=== PATIENT | male | born 1955 | race Caucasian/White ===

== ENCOUNTER 2020-03-14 16:21 | Outpatient (REF) | payer MEDICARE, OTHER, SELFPAY ==
[2020-03-14 16:33] LABS: Appearance Urine CLEAR; Color Urine YELLOW; Glucose Urine UA NEG (NEG); Leukocyte Esterase Urine 1+ (NEG); Nitrite Urine POS (NEG); Specific Gravity - Urine <= 1.005 (1.005-1.025); Urine Blood 3+ (NEG); Urine Ketones NEG (NEG); Urine Protein NEG (NEG-TRACE)
[2020-03-14 16:46] LABS: Bacteria Urine 1+ /LPF; RBC Urine 0-2 /HPF (0); Squamous Epithelial Cell Urine TRACE /LPF
== END 2020-03-14 16:22 | disposition home or self-care (01) ==
LOC: HO.LNP 16:21
PROVIDERS: Visit Provider Urology
DX: R30.0 Dysuria (principal)
CPT/HCPCS: 81001

== ENCOUNTER 2021-04-24 14:52 | Outpatient (REF) | payer MEDICARE, OTHER, SELFPAY ==
[2021-04-24 17:15] LABS: Appearance Urine HAZY; Color Urine STRAW; Glucose Urine UA NEG (NEG); Leukocyte Esterase Urine 2+ (NEG); Nitrite Urine NEG (NEG); Specific Gravity - Urine <= 1.005 (1.005-1.025); UACC Culture Trigger YES; Urine Blood 3+ (NEG); Urine Ketones NEG (NEG); Urine Protein NEG (NEG-TRACE)
[2021-04-24 17:48] LABS: Amorphous Sediment Urine 3+ /LPF; Bacteria Urine 4+ /LPF; Squamous Epithelial Cell Urine 2+ /LPF
== END 2021-04-24 14:53 | disposition home or self-care (01) ==
LOC: HO.HMGCLNP 14:52
PROVIDERS: PCP Nurse Practitioner Family; Visit Provider Urology
DX: N39.0 Urinary tract infection, site not specified (principal); M54.9 Dorsalgia, unspecified
CPT/HCPCS: 81001; 81003; 87086

== ENCOUNTER 2021-05-06 12:17 | Outpatient (REF) | payer MEDICARE, OTHER, SELFPAY ==
[2021-05-06 14:14] LABS: Appearance Urine HAZY; Color Urine YELLOW; Glucose Urine UA NEG (NEG); Leukocyte Esterase Urine 2+ (NEG); Nitrite Urine POS (NEG); Specific Gravity - Urine 1.025 (1.005-1.025); Urine Blood 3+ (NEG); Urine Ketones NEG (NEG); Urine Protein TRACE MG/DL (NEG-TRACE)
[2021-05-06 14:28] LABS: Amorphous Sediment Urine 3+ /LPF; Bacteria Urine 2+ /LPF; Renal Epithelial Cells Urine TRACE /LPF; Squamous Epithelial Cell Urine 1+ /LPF
== END 2021-05-06 12:18 | disposition home or self-care (01) ==
LOC: HO.HMGCLNP 12:17
PROVIDERS: Visit Provider Urology
DX: R82.90 Unspecified abnormal findings in urine (principal); R82.998 Other abnormal findings in urine
CPT/HCPCS: 81001

== ENCOUNTER 2021-05-17 17:40 | Outpatient (REF) | payer MEDICARE, OTHER, SELFPAY ==
[2021-05-17 17:59] LABS: Appearance Urine CLEAR; Color Urine YELLOW; Glucose Urine UA NEG (NEG); Leukocyte Esterase Urine TRACE (NEG); Nitrite Urine NEG (NEG); PH 5.5 (5.0-8.0); Specific Gravity - Urine >= 1.030 (1.005-1.025); Urine Blood 1+ (NEG); Urine Ketones 5 MG/DL (NEG); Urine Protein 2+ MG/DL (NEG-TRACE)
[2021-05-17 18:19] LABS: Bacteria Urine 2+ /LPF; Squamous Epithelial Cell Urine 2+ /LPF
== END 2021-05-17 17:41 | disposition home or self-care (01) ==
LOC: HO.HVNA 17:40
PROVIDERS: Visit Provider Urology
DX: N39.0 Urinary tract infection, site not specified (principal)
CPT/HCPCS: 81001; 87086

== ENCOUNTER 2021-06-27 09:52 | Outpatient (REF) | payer MEDICARE, OTHER, SELFPAY ==
[2021-06-27 11:52] LABS: Appearance Urine CLOUDY; Color Urine YELLOW; Glucose Urine UA NEG (NEG); Leukocyte Esterase Urine 2+ (NEG); Nitrite Urine POS (NEG); UACC Culture Trigger YES; Urine Blood 3+ (NEG); Urine Ketones NEG (NEG); Urine Protein TRACE MG/DL (NEG-TRACE)
[2021-06-27 12:11] LABS: Amorphous Sediment Urine 2+ /LPF; Bacteria Urine 2+ /LPF; Squamous Epithelial Cell Urine 1+ /LPF
[2021-06-27 12:12] LABS: Mucus Urine 1+ /LPF
== END 2021-06-27 09:53 | disposition home or self-care (01) ==
LOC: HO.HMGCLNP 09:52
PROVIDERS: Visit Provider Internal Medicine
DX: N39.0 Urinary tract infection, site not specified (principal)
CPT/HCPCS: 81001; 87086

== ENCOUNTER 2021-07-10 10:43 | Outpatient (REF) | payer MEDICARE, OTHER, SELFPAY ==
[2021-07-10 14:31] LABS: Alanine Aminotransferase 18 U/L (0-40); Alkaline Phosphatase 143 U/L (39-117); Anion Gap 18 (12-20); Aspartate Amino Transferase 19 U/L (5-37); Bilirubin Total 0.4 mg/dL (0.0-1.0); Blood Urea Nitrogen 12 mg/dL (9-16); Calcium 9.7 mg/dL (8.4-10.2); Carbon Dioxide 22 mmol/L (22-29); Chloride 104 mmol/L (96-108); Cholesterol 226 mg/dL; Estimated Glomerular Filt Rate > 60; Glucose Fasting 89 mg/dL (60-99); HDL Cholesterol 45 mg/dL; LDL Cholesterol Calculated 161 mg/dl; Potassium 4.3 mmol/L (3.3-5.1); Sodium 140 mmol/L (135-145); Total Protein 7.9 g/dL (6.5-8.0); Triglycerides 103 mg/dL
[2021-07-10 14:44] LABS: Prostate Specific Antigen Scr 0.86 ng/mL (<0.05-4.0); TSH reflex Free T4 1.46 uIU/mL (0.32-4.0)
== END 2021-07-10 10:44 | disposition home or self-care (01) ==
LOC: HO.HVNA 10:43
PROVIDERS: Visit Provider Nurse Practitioner Family
DX: D68.61 Antiphospholipid syndrome (principal); D64.9 Anemia, unspecified; Z12.5 Encounter for screening for malignant neoplasm of prostate
CPT/HCPCS: 36415; 80053; 80061; 84153; 84443

== ENCOUNTER 2022-05-23 17:56 | Outpatient (REF) | payer MEDICARE, SELFPAY ==
[2022-05-23 18:35] LABS: Appearance Urine Cloudy; Color Urine Yellow; Glucose Urine UA Negative (Negative); Leukocyte Esterase Urine Moderate (2+) (Negative); Nitrite Urine Positive (Negative); PH 5.5 (5.0-9.0); Specific Gravity - Urine 1.015 (1.005-1.025); UMIC TRIGGER UA YES; Urine Blood Large (3+) (Negative); Urine Ketones 15 mg/dL (Negative); Urine Protein 30 (1+) mg/dL (Neg-Trace)
[2022-05-23 19:12] LABS: Bacteria Urine 4+ (None Seen)
== END 2022-05-23 17:57 | disposition home or self-care (01) ==
LOC: HO.HVNA 17:56
PROVIDERS: Visit Provider Nurse Practitioner Family
DX: N31.9 Neuromuscular dysfunction of bladder, unspecified (principal); N39.0 Urinary tract infection, site not specified
CPT/HCPCS: 81001; 87086

== ENCOUNTER 2022-05-28 12:25 | Inpatient (IN) | payer MEDICARE, OTHER, SELFPAY ==
[2022-05-28] VITALS (7 sets, daily range): BP systolic 105–132; BP diastolic 53–87; PULSE 86–105; RESP 14–22; TEMP 36.8–39.3; O2SAT 94–100; BMI 21.2
--- NOTE | ~2022-05-28 | CT_ITS ---
EXAMINATION: CT PELVIS WITH CONTRAST CLINICAL INFORMATION: Left buttock decubitus ulcer, rule out osteomyelitis. COMPARISON: Pelvic radiograph dated 03/25/2017. TECHNIQUE: Helical scanning was performed with submillimeter collimation through the pelvis with the use of oral contrast and during bolus intravenous injection of 100 mL of Omnipaque 350 intravenous contrast. Sagittal and coronal multiplanar 2-D reconstructions were obtained. This CT examination was performed using dose optimization techniques as appropriate, variously including the following: *Automated exposure control *Adjustment of mA and/or kV according to patient size (this includes techniques or standardized protocols for targeted exams where dose is matched to indication/reason for exam; i.e. extremities or head) *Use of iterative reconstruction technique DLP: 256 mGy-cm FINDINGS: PELVIS: The visualized small bowel is unremarkable. Moderate stool seen within the visualized colon and rectum. The urinary bladder is decompressed containing a Ann catheter without surrounding abnormality. SOFT TISSUES: There is a large right inferomedial gluteal soft tissue wound extending deep to the posterior inferior margin of the right inferior pubic ramus as well as inferomedially into the right perineum and possible right scrotum. Edema extends along the subcutaneous soft tissues superficial to the right gluteus zion muscle. OSSEOUS STRUCTURES: Mild degenerative disc disease in the visualized lumbar spine from L3-L4 and L5-S1. Minimal grade 1 retrolisthesis of L5 over S1. There is normal sacrococcygeal curvature. No acute fracture. CT/CT pelvis w IV con IMPRESSION: 1. Large right inferomedial gluteal soft tissue wound extending deep to the posterior inferior margin of the right inferior pubic ramus as well as inferomedially into the right perineum possibly right scrotum. The subjacent right inferior pubic ramus shows no definitive evidence for osteomyelitis. 2. Moderate colonic/rectal stool burden.
--- NOTE | 2022-05-28 13:15 | MHC.CM.ED ---
Received notification from [facility] that patient is active with their agency. Med list provided from [facility] and placed in chart. Referral made to [facility] in [facility] so they can follow patient for d/c needs. Continue to monitor for d/c needs.
[2022-05-28 14:07] LABS: Basophils Percent Auto 0.2 % (0-2); Eosinophils Percent Auto 0.1 % (0-4); Hematocrit 42.7 % (42.0-52.0); Hemoglobin 14.3 g/dl (14.0-18.0); Imm Gran Abs Auto 0.13 X10*3/uL (0.00-0.03); Imm Gran Pct Auto 0.6 % (0.0-0.4); Lymphocytes Absolute Auto 1.2 X10*3/uL (1.2-4.9); Lymphocytes Percent Auto 5.3 % (20-40); MANUAL DIFF FLAG SCAN; Mean Corpuscular HGB Conc 33.5 g/dl (31.0-36.0); Mean Corpuscular Hemoglobin 29.4 pg (27.0-33.0); Mean Corpuscular Volume 87.9 fL (80.0-98.0); Monocytes Absolute Auto 1.9 X10*3/uL (0.1-1.2); Monocytes Percent Auto 8.8 % (2-11); Neutrophils Absolute Auto 18.7 x10*3/uL (2.0-8.3); Platelet Count 709 X10*3/uL (160-400); Red Blood Count 4.86 X10*6/uL (4.60-5.80); Red Cell Distribution Width 15.5 % (11.0-16.0); SCAN SMEAR FLAG 1
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
[2022-05-28 14:17] LABS: Lactic Acid 1.3 mmol/L (0.5-2.0)
[2022-05-28] MEDS: cefTRIAXone sodium 2 GM in 0.9 % Sodium Chloride 50 ML IV (14:25)
[2022-05-28] MEDS: 0.9 % Sodium Chloride 2,041.17 ML 2041.17 ML IV (14:25)
[2022-05-28 14:31] LABS: Appearance Urine Cloudy; Color Urine Yellow; Glucose Urine UA Negative (Negative); Leukocyte Esterase Urine Moderate (2+) (Negative); Nitrite Urine Positive (Negative); PH 5.5 (5.0-9.0); Specific Gravity - Urine 1.015 (1.005-1.025); UMIC TRIGGER UACC YES; Urine Blood Large (3+) (Negative); Urine Ketones Trace mg/dL (Negative); Urine Protein 30 (1+) mg/dL (Neg-Trace)
[2022-05-28 14:34] LABS: Bacteria Urine 4+ (None Seen); Hyaline Casts Urine 0-2 /LPF (0-2); RBC Urine >20 /HPF (0-2); UACC Culture Trigger YES; WBC Urine 21-50 /HPF (0-5)
[2022-05-28] MEDS: vancomycin HCL 1,500 MG in 0.9 % Sodium Chloride 500 ML 333.33 MG IV (14:36)
[2022-05-28 14:43] LABS: SLIDE REVIEW VERIFIED
[2022-05-28 14:48] LABS: Alanine Aminotransferase 30 U/L (0-40); Albumin Level 3.4 g/dL (3.5-5.0); Alkaline Phosphatase 168 U/L (39-117); Anion Gap 15 (12-20); Aspartate Amino Transferase 23 U/L (5-37); Bilirubin Total 0.7 mg/dL (0.0-1.0); Blood Urea Nitrogen 8 mg/dL (9-16); Calcium 8.6 mg/dL (8.4-10.2); Carbon Dioxide 27 mmol/L (22-29); Chloride 101 mmol/L (96-108); Creatinine Clr Calc Pharmacy 101.2; Estimated Glomerular Filt Rate > 60; Glucose Fasting 98 mg/dL (60-99); Potassium 3.8 mmol/L (3.3-5.1); Sodium 139 mmol/L (135-145); Total Protein 7.4 g/dL (6.5-8.0)
[2022-05-28] MEDS: Acetaminophen 325 MG TABLET 975 MG PO (15:00)
[2022-05-28] MEDS: iohexoL 350 MG/ML 100 ML INFUS..BTL IV (15:18)
[2022-05-28 15:20] LABS: Prothrombin Time 72.5 SEC (10.0-13.1)
[2022-05-28 15:22] LABS: INTERNATIONAL NORM RATIO 5.9 (0.9-1.1)
[2022-05-28] MEDS: Phytonadione (Vit K1) Oral 10 MG/ML AMPUL 2.5 MG PO (16:01)
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
--- NOTE | 2022-05-28 17:02 | PHA.MEDREC ---
Pharmacy Consult ? Medication Reconciliation Pharmacy has completed the medication reconciliation. Spoke with patient in the ED. Patient takes warfarin 7.5 mg mg on mon thu and fri and 5 mg all other days/ Patient has not picked up RX for levaquin yet.
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
[2022-05-28] MEDS: Atorvastatin Calcium 20 MG TABLET PO (21:36)
--- NOTE | 2022-05-28 21:41 | PC.NURSE ---
pt medicated according to feli. this rn assisted pt in emptying barrera leg collection bag. pt repositioned to R side. pt states no new needs at this time
[2022-05-28] MEDS: cefEPime HCl 2 GM in 0.9 % Sodium Chloride 50 ML IV (23:24)
[2022-05-28] MEDS: 0.9 % Sodium Chloride Flush 3 ML SYRINGE IVFLUSH (23:24)
[2022-05-28 23:53] LABS: COVID-19 Test Negative (Negative); IDNOW Serial# 6674DD1D
--- NOTE | 2022-05-29 | PC.NURSE ---
pt medicated according to may. pt repositioned to L side. bed linens straightened out. covid swab obtained and sent down to lab
--- NOTE | 2022-05-29 01:29 | PC.NURSE ---
pr resting comfortably on l side. pt provided with additional pillow. pt requested cranberry juice at this time. this rn provided pt with juice. pt states no new needs at this time
--- NOTE | 2022-05-29 05:11 | PC.NURSE ---
pt sleeping on stretcher at this time.
[2022-05-29 06:57] LABS: Basophils Absolute Auto 0.1 X10*3/uL (0.0-0.2); Basophils Percent Auto 0.3 % (0-2); Eosinophils Absolute Auto 0.2 X10*3/uL (0.0-0.4); Hemoglobin 12.5 g/dl (14.0-18.0); Imm Gran Pct Auto 0.5 % (0.0-0.4); Lymphocytes Absolute Auto 1.2 X10*3/uL (1.2-4.9); Lymphocytes Percent Auto 6.7 % (20-40); MANUAL DIFF FLAG SCAN; Mean Corpuscular HGB Conc 33.8 g/dl (31.0-36.0); Mean Corpuscular Volume 88.7 fL (80.0-98.0); Mean Platelet Volume 9.4 fL (9.4-12.4); Monocytes Absolute Auto 1.8 X10*3/uL (0.1-1.2); Monocytes Percent Auto 9.8 % (2-11); Neutrophils Absolute Auto 15.3 x10*3/uL (2.0-8.3); Neutrophils Percent Auto 81.7 % (45-73); Platelet Count 647 X10*3/uL (160-400); Red Blood Count 4.17 X10*6/uL (4.60-5.80); Red Cell Distribution Width 15.6 % (11.0-16.0); SCAN SMEAR FLAG 1; White Blood Count 18.6 X10*3/uL (4.8-10.8)
[2022-05-29 07:02] LABS: INTERNATIONAL NORM RATIO 3.3 (0.9-1.1); Prothrombin Time 40.1 SEC (10.0-13.1)
[2022-05-29 07:10] LABS: Anion Gap 12 (12-20); Blood Urea Nitrogen 6 mg/dL (9-16); Carbon Dioxide 26 mmol/L (22-29); Chloride 106 mmol/L (96-108); Creatinine Clr Calc Pharmacy 126.6; Estimated Glomerular Filt Rate > 60; Glucose Random 86 mg/dL (60-115); Potassium 3.6 mmol/L (3.3-5.1); Sodium 140 mmol/L (135-145)
[2022-05-29 07:29] VITALS: BP 111/68; PULSE 87; RESP 20; TEMP 37.6; O2SAT 96
[2022-05-29 07:36] LABS: SLIDE REVIEW VERIFIED
[2022-05-29] MEDS: Ascorbic Acid 500 MG TABLET PO (08:03)
[2022-05-29] MEDS: Ferrous Sulfate 324 MG TABLET.DR PO (08:03)
[2022-05-29] MEDS: cefEPime HCl 2 GM in 0.9 % Sodium Chloride 50 ML IV ×3 (08:03→21:36)
[2022-05-29] MEDS: 0.9 % Sodium Chloride Flush 3 ML SYRINGE IVFLUSH ×3 (08:06→21:37)
--- NOTE | 2022-05-29 08:16 | MHC.EDTECH ---
Patient bedding changed and wound covered. Catheter drainage bag changed from leg bag that Pt came in with to one of our drainage bags.
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
--- NOTE | 2022-05-29 12:53 | PC.NURSE ---
per dr. rebollar - pt to have surgery tomorrow so pt needs to be npo tonight. pt aware of plan of care. primary care rn aware.
[2022-05-29] MEDS: vancomycin HCL 1,250 MG in 0.9 % Sodium Chloride 250 ML 166.67 MG IV (13:56)
--- NOTE | 2022-05-29 13:56 | P.PNIM_ITS ---
Subjective Subjective Date of Service: 05/30/22 Interval History: f/u on sepsis, uti, decub ulcer interval history: no new complaint Physical Exam Vital Signs: Vital Signs: Last Vital Signs Temp 99.6 F 05/29/22 07:29 Pulse 87 05/29/22 07:29 Resp 20 05/29/22 07:29 BP 111/68 05/29/22 07:29 Pulse Ox 96 05/29/22 07:29 O2 Del Method 05/29/22 07:29 BMI result Body Mass Index 21.2 Const: Other: General: AO X 3, no acute distress Resp: CTA bilateral CVS: S1,S2,RRR GI: +BS, NT, no distention Skin: See ulcer picuture in H and P Neuro: motor grossly intact Psych: appropriate affect Objective Data Active Medications Acetaminophen (Acetaminophen 325 Mg Tablet) 650 mg PO Q6H PRN PRN Reason: Pain, Mild, fever Ascorbic Acid (Ascorbic Acid 500 Mg Tablet) 500 mg PO DAILY [facility] Last Admin: 05/29/22 08:03 Dose: 500 mg Documented By: MIGUEL Atorvastatin Calcium (Atorvastatin Calcium 20 Mg Tablet) 20 mg PO BEDTIME [facility] Last Admin: 05/28/22 21:36 Dose: 20 mg Documented By: KAILEY Ferrous Sulfate (Ferrous Sulfate 324 Mg Tablet.) 324 mg PO DAILY [facility] Last Admin: 05/29/22 08:03 Dose: 324 mg Documented By: MIGUEL Cefepime HCl 2 gm/ Sodium (Chloride) 50 mls @ 100 mls/hr IV Q8H [facility] Last Infusion: 05/29/22 11:47 Dose: 0 mls/hr Documented By: MIGUEL Vancomycin HCl 1,250 mg/ (Sodium Chloride) 250 mls @ 166.667 mls/hr IV Q24H [facility] Last Admin: 05/29/22 13:56 Dose: 166.67 mls/hr Documented By: YONY Omeprazole (Omeprazole 20 Mg Capsule.) 20 mg PO DAILY@0630 PRN PRN Reason: Acid Reflux Pharmacy Consult (Consult Rx Perform Med Rec) 1 each MISCELLANE ONCE PRN PRN Reason: Consult order Pharmacy Consult (Consult Rx Vancomycin Dosing) 1 each MISCELLANE DAILY PRN PRN Reason: Consult order Sodium Chloride (0.9 % Sodium Chloride Flush 3 Ml Syringe) 3 ml IVFLUSH QSHIFT [facility] Last Admin: 05/29/22 08:06 Dose: 3 ml Documented By: MIGUEL Labs 05/29/22 06:35 05/29/22 06:35 Labs: Laboratory Results - last 24 hr 05/28/22 05/28/22 05/28/22 13:56 13:56 13:56 MCV 87.9 MCH 29.4 MCHC 33.5 RDW 15.5 Plt Count 709 H MPV 9.0 L Immature Gran % (Auto) 0.6 H Neut % (Auto) 85.0 H Lymph % (Auto) 5.3 L [place] % (Auto) 8.8 Eos % (Auto) 0.1 Baso % (Auto) 0.2 Lymph # (Auto) 1.2 [place] # (Auto) 1.9 H Eos # (Auto) 0.0 Baso # (Auto) 0.0 Abs Immat Gran (auto) 0.13 H Absolute Neuts (auto) 18.7 H Absolute Nucleated RBC 0.000 Nucleated RBC % (auto) 0.0 Smear Tech's Comments VERIFIED PT INR Anion Gap 15 Estim Creat Clear Calc 101.2 Estimated GFR > 60 Random Glucose Fasting Glucose 98 Lactic Acid 1.3 Calcium 8.6 D Total Bilirubin 0.7 AST 23 ALT 30 Alkaline Phosphatase 168 H Total Protein 7.4 Albumin 3.4 L Urine Color Urine Appearance Urine pH Ur Specific [place] Urine Protein Urine Glucose (UA) Urine Ketones Urine Blood Urine Nitrite Ur Leukocyte Esterase Urine RBC Urine WBC Ur Squamous Epith Cells Urine Bacteria Hyaline Casts COVID-19 (SANJEEV) COVID-19 Clin Com 05/28/22 05/28/22 05/28/22 14:21 15:08 23:34 MCV MCH MCHC RDW Plt Count MPV Immature Gran % (Auto) Neut % (Auto) Lymph % (Auto) [place] % (Auto) Eos % (Auto) Baso % (Auto) Lymph # (Auto) [place] # (Auto) Eos # (Auto) Baso # (Auto) Abs Immat Gran (auto) Absolute Neuts (auto) Absolute Nucleated RBC Nucleated RBC % (auto) Smear Tech's Comments PT 72.5 H INR 5.9 H* Anion Gap Estim Creat Clear Calc Estimated GFR Random Glucose Fasting Glucose Lactic Acid Calcium Total Bilirubin AST ALT Alkaline Phosphatase Total Protein Albumin Urine Color Yellow Urine Appearance Cloudy Urine pH 5.5 Ur Specific [place] 1.015 Urine Protein 30 (1+) H Urine Glucose (UA) Negative Urine Ketones Trace Urine Blood Large (3+) H Urine Nitrite Positive H Ur Leukocyte Esterase Moderate (2+) H Urine RBC >20 H Urine WBC 21-50 H Ur Squamous Epith Cells 3-5 Urine Bacteria 4+ Hyaline Casts 0-2 COVID-19 (SANJEEV) Negative COVID-19 Clin Com See Note 05/29/22 05/29/22 05/29/22 06:35 06:35 06:35 MCV 88.7 MCH 30.0 MCHC 33.8 RDW 15.6 Plt Count 647 H MPV 9.4 Immature Gran % (Auto) 0.5 H Neut % (Auto) 81.7 H Lymph % (Auto) 6.7 L [place] % (Auto) 9.8 Eos % (Auto) 1.0 Baso % (Auto) 0.3 Lymph # (Auto) 1.2 [place] # (Auto) 1.8 H Eos # (Auto) 0.2 Baso # (Auto) 0.1 Abs Immat Gran (auto) 0.10 H Absolute Neuts (auto) 15.3 H Absolute Nucleated RBC 0.000 Nucleated RBC % (auto) 0.0 Smear Tech's Comments VERIFIED PT 40.1 H INR 3.3 H D Anion Gap 12 Estim Creat Clear Calc 126.6 Estimated GFR > 60 Random Glucose 86 Fasting Glucose Lactic Acid Calcium 8.0 L D Total Bilirubin AST ALT Alkaline Phosphatase Total Protein Albumin Urine Color Urine Appearance Urine pH Ur Specific [place] Urine Protein Urine Glucose (UA) Urine Ketones Urine Blood Urine Nitrite Ur Leukocyte Esterase Urine RBC Urine WBC Ur Squamous Epith Cells Urine Bacteria Hyaline Casts COVID-19 (SANJEEV) COVID-19 Clin Com Microbiology Microbiology Results: Microbiology 05/28/22 Unknown Urine Culture - Final Urine Catheterized - Ann Catheter Assessment and Plan (1) Supratherapeutic INR: Status: Acute (2) Paraplegia: Status: Acute (3) Sepsis: Status: Acute (4) Decubitus ulcer, stage 3 with infection: Status: Acute Plan 66-year-old male who is paraplegic following consent wound and is wheelchair bound with PMH including antiphospholipid antibody syndrome, dyslipidemia, GERD, iron deficiency anemia, history of DVT anticoagulated with Coumadin, neurogenic bladder with Ann catheter in place admitted for UTI and decubitus ulcer with sepsis. #Sepsis d/t ulcer, improving, WBC better, fever resolved continue Abx, surgery for decub ulcer debriment continue Cefepime and vanco #UTI--continue Abx, culture pending # history of DVT with antiphospholipid antibody syndrome, hold coumadin until after surgery # paraplegia -continue chronic Ann catheter and ostomy care # iron deficiency anemia -H/H stable -continue ferrous sulfate # HLD -continue statin # GERD -continue PPI DNR/DNI DVT prophylaxis-SCPs, resume Coumadin once INR therapeutic Need for inpatient: treatment of sepsis with IV Abx and need for debridment in OR Time Spent With Patient Time: Total time managing care of this patient today ____ minutes. Quality Stroke Does the patient have a stroke diagnosis?: No VTE Prior VTE?: No VTE Risk Level:: Medical - moderate - high VTE Device Contraindication: N/A - Device Ordered VTE Drug Contraindication: Treatment Not Indicated
[2022-05-29] MEDS: Acetaminophen 325 MG TABLET 650 MG PO (14:20)
--- NOTE | 2022-05-29 18:43 | PC.NURSE ---
Pt alert and oriented x4. Pt admitted o rm 344 with a decubitus Ulcer to his [facility] and urosepsis. Pt arrived in the unit around 1809 via a stretcher. Pt denies pain at this time.
[2022-05-29 19:10] VITALS: BP 118/64; PULSE 76; RESP 18; TEMP 37.4; O2SAT 97
[2022-05-29] MEDS: Atorvastatin Calcium 20 MG TABLET PO (21:37)
[2022-05-30] VITALS (8 sets, daily range): BP systolic 105–121; BP diastolic 55–69; PULSE 62–75; RESP 15–20; TEMP 36.4–37.9; O2SAT 97–99; BMI 21.2
[2022-05-30] MEDS: cefEPime HCl 2 GM in 0.9 % Sodium Chloride 50 ML IV ×3 (06:12→22:41)
--- NOTE | 2022-05-30 07:03 | PC.NURSE ---
INR 3.3 yesterday, no new draw this morning. Dr. Jade notified via [employer] and is okay to proceed without new draw.
[2022-05-30] MEDS: 0.9 % Sodium Chloride Flush 3 ML SYRINGE IVFLUSH ×3 (07:35→20:32)
[2022-05-30 08:50] LABS: Creatinine Clr Calc Pharmacy 102.8; Estimated Glomerular Filt Rate > 60
--- NOTE | 2022-05-30 09:05 | P.PNIM_ITS ---
Subjective Subjective Date of Service: 05/30/22 Interval History: f/u on sepsis, uti, decub ulcer interval history: pain controlled, no new issues Physical Exam Vital Signs: Vital Signs: Last Vital Signs Temp 98.7 F 05/30/22 07:36 Pulse 72 05/30/22 07:36 Resp 18 05/30/22 07:36 BP 117/55 L 05/30/22 07:36 Pulse Ox 98 05/30/22 07:36 O2 Del Method 05/30/22 07:36 BMI result Body Mass Index 21.2 Const: Other: General: AO X 3, no acute distress Resp: CTA bilateral CVS: S1,S2,RRR GI: +BS, NT, no distention Skin: See ulcer picuture in H and P Neuro: motor grossly intact Psych: appropriate affect Skin: Other: Ulcer as noted above Objective Data Active Medications Acetaminophen (Acetaminophen 325 Mg Tablet) 650 mg PO Q6H PRN PRN Reason: Pain, Mild, fever Last Admin: 05/29/22 14:20 Dose: 650 mg Documented By: MIGUEL Ascorbic Acid (Ascorbic Acid 500 Mg Tablet) 500 mg PO DAILY [facility] Last Admin: 05/30/22 07:30 Dose: Not Given Documented By: ERICK Non-Admin Reason: NPO Atorvastatin Calcium (Atorvastatin Calcium 20 Mg Tablet) 20 mg PO BEDTIME [facility] Last Admin: 05/29/22 21:37 Dose: 20 mg Documented By: AMY Ferrous Sulfate (Ferrous Sulfate 324 Mg Tablet.) 324 mg PO DAILY [facility] Last Admin: 05/30/22 07:30 Dose: Not Given Documented By: ERICK Non-Admin Reason: NPO Cefepime HCl 2 gm/ Sodium (Chloride) 50 mls @ 100 mls/hr IV Q8H [facility] Last Infusion: 05/30/22 06:44 Dose: 0 mls/hr Documented By: AMY Vancomycin HCl 1,250 mg/ (Sodium Chloride) 250 mls @ 166.667 mls/hr IV Q24H [facility] Last Infusion: 05/29/22 16:38 Dose: 0 mls/hr Documented By: MIGUEL Omeprazole (Omeprazole 20 Mg Capsule.) 20 mg PO DAILY@0630 PRN PRN Reason: Acid Reflux Pharmacy Consult (Consult Rx Perform Med Rec) 1 each MISCELLANE ONCE PRN PRN Reason: Consult order Pharmacy Consult (Consult Rx Vancomycin Dosing) 1 each MISCELLANE DAILY PRN PRN Reason: Consult order Sodium Chloride (0.9 % Sodium Chloride Flush 3 Ml Syringe) 3 ml IVFLUSH QSHIFT [facility] Last Admin: 05/30/22 07:35 Dose: 3 ml Documented By: ERICK Labs 05/29/22 06:35 05/30/22 08:26 Labs: Laboratory Results - last 24 hr 05/30/22 08:26 Estim Creat Clear Calc 102.8 Estimated GFR > 60 Microbiology Microbiology Results: Microbiology 05/28/22 13:56 Blood Culture - Preliminary Blood - Venous No growth after 24 hours. 05/28/22 13:56 Blood Culture - Preliminary Blood - Venous No growth after 24 hours. 05/28/22 Unknown Urine Culture - Final Urine Catheterized - Ann Catheter Assessment and Plan (1) Supratherapeutic INR: Status: Acute (2) Paraplegia: Status: Acute (3) Sepsis: Status: Acute (4) Decubitus ulcer, stage 3 with infection: Status: Acute Plan 66-year-old male who is paraplegic following consent wound and is wheelchair bound with PMH including antiphospholipid antibody syndrome, dyslipidemia, GERD, iron deficiency anemia, history of DVT anticoagulated with Coumadin, neurogenic bladder with Ann catheter in place admitted for UTI and decubitus ulcer with sepsis. #Sepsis d/t ulcer, improving, WBC better, fever resolved continue Abx, surgery for decub ulcer debriment today continue Cefepime and vanco #UTI--continue Abx, culture negative. # history of DVT with antiphospholipid antibody syndrome, hold coumadin until after surgery # paraplegia -continue chronic Ann catheter and ostomy care # iron deficiency anemia -H/H stable -continue ferrous sulfate # HLD -continue statin # GERD -continue PPI DNR/DNI DVT prophylaxis-SCPs, resume Coumadin once INR therapeutic Need for inpatient: treatment of sepsis with IV Abx and need for debridment in OR Time Spent With Patient Time: Total time managing care of this patient today ____ minutes. Quality Stroke Does the patient have a stroke diagnosis?: No VTE Prior VTE?: No VTE Risk Level:: Medical - moderate - high VTE Device Contraindication: N/A - Device Ordered VTE Drug Contraindication: Treatment Not Indicated
[2022-05-30 10:05] LABS: Hematocrit 40.3 % (42.0-52.0); Hemoglobin 13.2 g/dl (14.0-18.0); Mean Corpuscular HGB Conc 32.8 g/dl (31.0-36.0); Mean Corpuscular Hemoglobin 29.9 pg (27.0-33.0); Mean Corpuscular Volume 91.2 fL (80.0-98.0); Mean Platelet Volume 10.5 fL (9.4-12.4); Platelet Count 678 X10*3/uL (160-400); Red Blood Count 4.42 X10*6/uL (4.60-5.80); Red Cell Distribution Width 15.8 % (11.0-16.0); White Blood Count 17.6 X10*3/uL (4.8-10.8)
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
--- NOTE | 2022-05-30 13:06 | MHC.CLN ---
NUTRITION CONSULT FOR SKIN. REQUIRES SURGICAL DEBRIDEMENT OF NECROTIC WOUND. STAGE III TO RIGHT BUTTOCK. CURRENTLY NPO. DIET PRIOR TO NPO WAS REGULAR WITH ENSURE BID. CONTINUE REGULAR DIET WHEN ABLE. MAY INCREASE SUPPLEMENT TO ENSURE TID. PROVIDES ADDITIONAL 1050 KCALS, 60 G PROTEIN. FOLLOW FOR DIET ADVANCEMENT, WOUND HEALING, AND INTAKE.
[2022-05-30] MEDS: vancomycin HCL 1,250 MG in 0.9 % Sodium Chloride 250 ML 166.67 MG IV (14:56)
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
[2022-05-30 17:36] LABS: Erythrocyte Sedimentation Rate 66 MM/HR (0-15)
[2022-05-30] MEDS: Acetaminophen 325 MG TABLET 650 MG PO (20:31)
[2022-05-30] MEDS: Atorvastatin Calcium 20 MG TABLET PO (20:31)
[2022-05-31 04:00] VITALS: BP 119/70; PULSE 70; RESP 18; TEMP 36.4; O2SAT 97
--- NOTE | 2022-05-31 04:04 | PC.NURSE ---
pt right buttock has large amount of drainage without odor or pain. changed dressing packed hole as an ordered. wet to dry with Dakin's solution at 04:00.
[2022-05-31 06:20] LABS: Creatinine Clr Calc Pharmacy 109.7; Estimated Glomerular Filt Rate > 60
[2022-05-31] MEDS: cefEPime HCl 2 GM in 0.9 % Sodium Chloride 50 ML IV ×3 (06:33→22:45)
[2022-05-31 07:40] VITALS: BP 128/70; PULSE 68; RESP 18; TEMP 36.4; O2SAT 97
--- NOTE | 2022-05-31 08:38 | HO.PM.IMPN ---
Subjective Subjective Date of Service: 05/31/22 Interval History: f/u on sepsis, uti, decub ulcer interval history: pain controlled, no new issues s/p OR debridment yesterday Physical Exam Vital Signs: Vital Signs: Last Vital Signs Temp 97.6 F 05/31/22 07:40 Pulse 68 05/31/22 07:40 Resp 18 05/31/22 07:40 BP 128/70 05/31/22 07:40 Pulse Ox 97 05/31/22 07:40 O2 Del Method 05/31/22 07:40 BMI result Body Mass Index 21.2 Objective Data Active Medications Acetaminophen (Acetaminophen 325 Mg Tablet) 650 mg PO Q6H PRN PRN Reason: Pain, Mild, fever Last Admin: 05/30/22 20:31 Dose: 650 mg Documented By: TIGRE Ascorbic Acid (Ascorbic Acid 500 Mg Tablet) 500 mg PO DAILY [facility] Last Admin: 05/30/22 07:30 Dose: Not Given Documented By: ERICK Non-Admin Reason: NPO Atorvastatin Calcium (Atorvastatin Calcium 20 Mg Tablet) 20 mg PO BEDTIME [facility] Last Admin: 05/30/22 20:31 Dose: 20 mg Documented By: TIGRE Ferrous Sulfate (Ferrous Sulfate 324 Mg Tablet.) 324 mg PO DAILY [facility] Last Admin: 05/30/22 07:30 Dose: Not Given Documented By: ERICK Non-Admin Reason: NPO Cefepime HCl 2 gm/ Sodium (Chloride) 50 mls @ 100 mls/hr IV Q8H [facility] Last Infusion: 05/31/22 07:18 Dose: 0 mls/hr Documented By: CHRISTINA Vancomycin HCl 1,250 mg/ (Sodium Chloride) 250 mls @ 166.667 mls/hr IV Q24H [facility] Last Infusion: 05/30/22 16:33 Dose: 0 mls/hr Documented By: DEIDRE Omeprazole (Omeprazole 20 Mg Capsule.) 20 mg PO DAILY@0630 PRN PRN Reason: Acid Reflux Pharmacy Consult (Consult Rx Perform Med Rec) 1 each MISCELLANE ONCE PRN PRN Reason: Consult order Pharmacy Consult (Consult Rx Vancomycin Dosing) 1 each MISCELLANE DAILY PRN PRN Reason: Consult order Sodium Chloride (0.9 % Sodium Chloride Flush 3 Ml Syringe) 3 ml IVFLUSH QSHIFT [facility] Last Admin: 05/30/22 20:32 Dose: 3 ml Documented By: TIGRE Sodium Hypochlorite (Sodium Hypochlorite 0.25% 473 Ml Solution) 1 appl TOPICAL DAILY [facility] Last Admin: 05/31/22 04:03 Dose: 1 appl Documented By: TIGRE Labs 05/30/22 08:26 05/31/22 05:35 Labs: Laboratory Results - last 24 hr 05/30/22 05/30/22 05/30/22 08:26 08:26 16:29 MCV 91.2 MCH 29.9 MCHC 32.8 RDW 15.8 Plt Count 678 H MPV 10.5 Absolute Nucleated RBC 0.000 Nucleated RBC % (auto) 0.0 ESR 66 H Estim Creat Clear Calc 102.8 Estimated GFR > 60 05/31/22 05:35 MCV MCH MCHC RDW Plt Count MPV Absolute Nucleated RBC Nucleated RBC % (auto) ESR Estim Creat Clear Calc 109.7 Estimated GFR > 60 Microbiology Microbiology Results: Microbiology 05/30/22 12:53 Gram Stain - Final Sacrum 05/28/22 13:56 Blood Culture - Preliminary Blood - Venous No growth after 48 hours. 05/28/22 13:56 Blood Culture - Preliminary Blood - Venous No growth after 48 hours. Assessment and Plan (1) Supratherapeutic INR: Status: Acute (2) Paraplegia: Status: Acute (3) Sepsis: Status: Acute (4) Decubitus ulcer, stage 3 with infection: Status: Acute Plan 66-year-old male who is paraplegic following consent wound and is wheelchair bound with PMH including antiphospholipid antibody syndrome, dyslipidemia, GERD, iron deficiency anemia, history of DVT anticoagulated with Coumadin, neurogenic bladder with Ann catheter in place admitted for UTI and decubitus ulcer with sepsis. #Sepsis d/t ulcer, improving, WBC better, fever resolved, ESR 66 ID is recommending at least 3 weeks of IV Ertapenem continue Abx, Debride in OR 3/3, cultures negative continue Cefepime and vanco, dc vaco today #UTI--continue Abx as above, culture negative. # history of DVT with antiphospholipid antibody syndrome, check INR, resume coumadin # paraplegia -continue chronic Ann catheter and ostomy care # iron deficiency anemia -H/H stable -continue ferrous sulfate # HLD -continue statin # GERD -continue PPI DNR/DNI DVT prophylaxis-SCPs, resume Coumadin once INR therapeutic Need for inpatient: treatment of sepsis with IV Abx and need for debridment in OR Time Spent With Patient Time: Total time managing care of this patient today ____ minutes. Quality Stroke Does the patient have a stroke diagnosis?: No VTE Prior VTE?: No VTE Risk Level:: Medical - moderate - high VTE Device Contraindication: N/A - Device Ordered VTE Drug Contraindication: Treatment Not Indicated
[2022-05-31 09:16] LABS: INTERNATIONAL NORM RATIO 1.4 (0.9-1.1)
[2022-05-31] MEDS: 0.9 % Sodium Chloride Flush 3 ML SYRINGE IVFLUSH ×3 (09:20→21:04)
[2022-05-31] MEDS: Ferrous Sulfate 324 MG TABLET.DR PO (09:20)
[2022-05-31] MEDS: Ascorbic Acid 500 MG TABLET PO (09:20)
[2022-05-31 12:33] LABS: Vancomycin Trough 5.5 mcg/mL (10.0-20.0)
--- NOTE | 2022-05-31 12:45 | HE.PHANOTE ---
RE VANCO TROUGH WAS 5.5, INCREASING DOSE TO 1GRAM Q12H; NEXT LEVEL DUE 06/01 @1100. NEW SUSPECTED AUC 531, TROUGH 15.1 SID
[2022-05-31] MEDS: Warfarin Sodium 7.5 MG TABLET PO (12:55)
[2022-05-31] MEDS: vancomycin HCL 1,000 MG in 0.9 % Sodium Chloride 250 ML 270 MG IV (12:56)
[2022-05-31 15:28] VITALS: BP 114/64; PULSE 68; RESP 18; TEMP 37; O2SAT 97
[2022-05-31 19:10] VITALS: BP 113/60; PULSE 73; RESP 18; TEMP 36.7; O2SAT 96
[2022-05-31] MEDS: Atorvastatin Calcium 20 MG TABLET PO (21:04)
[2022-06-01] MEDS: vancomycin HCL 1,000 MG in 0.9 % Sodium Chloride 250 ML 270 MG IV ×2 (00:24→12:41)
[2022-06-01 03:26] VITALS: BP 115/64; PULSE 65; RESP 18; TEMP 36.3; O2SAT 98
[2022-06-01 06:08] LABS: Estimated Glomerular Filt Rate > 60
[2022-06-01] MEDS: cefEPime HCl 2 GM in 0.9 % Sodium Chloride 50 ML IV ×3 (06:12→22:28)
[2022-06-01 07:26] VITALS: BP 131/60; PULSE 66; RESP 18; TEMP 36; O2SAT 97
[2022-06-01] MEDS: Ferrous Sulfate 324 MG TABLET.DR PO (07:32)
[2022-06-01] MEDS: Ascorbic Acid 500 MG TABLET PO (07:32)
[2022-06-01] MEDS: 0.9 % Sodium Chloride Flush 3 ML SYRINGE IVFLUSH ×2 (07:34→20:40)
--- NOTE | 2022-06-01 09:16 | P.PNIM_ITS ---
Subjective Subjective Date of Service: 06/01/22 Interval History: f/u on sepsis, uti, decub ulcer interval history: pain controlled, no new issues s/p OR debridment 05/30 Physical Exam Vital Signs: Vital Signs: Last Vital Signs Temp 96.8 F 06/01/22 07:26 Pulse 66 06/01/22 07:26 Resp 18 06/01/22 07:26 BP 131/60 06/01/22 07:26 Pulse Ox 97 06/01/22 07:26 O2 Del Method 06/01/22 07:26 BMI result Body Mass Index 21.2 Const: Other: General: AO X 3, no acute distress Resp: CTA bilateral CVS: S1,S2,RRR GI: +BS, NT, no distention Skin: See ulcer picuture in H and P Neuro: motor grossly intact Psych: appropriate affect Objective Data Active Medications Acetaminophen (Acetaminophen 325 Mg Tablet) 650 mg PO Q6H PRN PRN Reason: Pain, Mild, fever Last Admin: 05/30/22 20:31 Dose: 650 mg Documented By: TIGRE Ascorbic Acid (Ascorbic Acid 500 Mg Tablet) 500 mg PO DAILY [facility] [place] Last Admin: 06/01/22 07:32 Dose: 500 mg Documented By: CHRISTINA Atorvastatin Calcium (Atorvastatin Calcium 20 Mg Tablet) 20 mg PO BEDTIME [facility] [place] Last Admin: 05/31/22 21:04 Dose: 20 mg Documented By: TIGRE Ferrous Sulfate (Ferrous Sulfate 324 Mg Tablet.) 324 mg PO DAILY [facility] Last Admin: 06/01/22 07:32 Dose: 324 mg Documented By: CHRISTINA Vancomycin HCl 1,000 mg/ (Sodium Chloride) 270 mls @ 270 mls/hr IV Q12H [facility] [place] Last Infusion: 06/01/22 01:25 Dose: 0 mls/hr Documented By: TIGRE Cefepime HCl 2 gm/ Sodium (Chloride) 50 mls @ 100 mls/hr IV Q8H [facility] [place] Last Infusion: 06/01/22 06:44 Dose: 0 mls/hr Documented By: TIGRE Omeprazole (Omeprazole 20 Mg Capsule.) 20 mg PO DAILY@0630 PRN PRN Reason: Acid Reflux Pharmacy Consult (Consult Rx Perform Med Rec) 1 each MISCELLANE ONCE PRN PRN Reason: Consult order Pharmacy Consult (Consult Rx Vancomycin Dosing) 1 each MISCELLANE DAILY PRN PRN Reason: Consult order Sodium Chloride (0.9 % Sodium Chloride Flush 3 Ml Syringe) 3 ml IVFLUSH QSHIFT [facility] [place] Last Admin: 06/01/22 07:34 Dose: 3 ml Documented By: CHRISTINA Sodium Hypochlorite (Sodium Hypochlorite 0.25% 473 Ml Solution) 1 appl TOPICAL DAILY [facility] [place] Last Admin: 06/01/22 07:32 Dose: 1 appl Documented By: CHRISTINA Labs 05/30/22 08:26 06/01/22 05:09 Labs: Laboratory Results - last 24 hr 05/31/22 05/31/22 06/01/22 08:55 12:06 05:09 PT 16.0 H INR 1.4 H Estim Creat Clear Calc 129.0 Estimated GFR > 60 Vancomycin Trough 5.5 L Microbiology Microbiology Results: Microbiology 05/30/22 12:53 Gram Stain - Final Sacrum Routine Culture - Preliminary Culture in progress. Assessment and Plan (1) Supratherapeutic INR: Status: Acute (2) Paraplegia: Status: Acute (3) Sepsis: Status: Acute (4) Decubitus ulcer, stage 3 with infection: Status: Acute Plan 66-year-old male who is paraplegic following consent wound and is wheelchair bound with PMH including antiphospholipid antibody syndrome, dyslipidemia, GERD, iron deficiency anemia, history of DVT anticoagulated with Coumadin, neurogenic bladder with Ann catheter in place admitted for UTI and decubitus ulcer with sepsis. #Sepsis d/t ulcer, improving, WBC better, fever resolved, ESR 66 continue Abx, Debride in OR 3/3, cultures negative continue Cefepime and vanco, ID is recommending at least 3 weeks of IV Ertapenem PICC line tomorrow #UTI--continue Abx as above, culture negative. # history of DVT with antiphospholipid antibody syndrome, check INR, resume coumadin # paraplegia -continue chronic Ann catheter and ostomy care # iron deficiency anemia -H/H stable -continue ferrous sulfate # HLD -continue statin # GERD -continue PPI DNR/DNI DVT prophylaxis-SCPs, resume Coumadin once INR therapeutic Need for inpatient: treatment of sepsis with IV Abx and need for debridment in OR Time Spent With Patient Time: Total time managing care of this patient today ____ minutes. Quality Stroke Does the patient have a stroke diagnosis?: No VTE Prior VTE?: No VTE Risk Level:: Medical - moderate - high VTE Device Contraindication: N/A - Device Ordered VTE Drug Contraindication: Treatment Not Indicated
[2022-06-01 09:34] LABS: INTERNATIONAL NORM RATIO 1.4 (0.9-1.1); Prothrombin Time 15.9 SEC (10.0-13.1)
[2022-06-01 11:09] LABS: Vancomycin Random 10.6 mcg/mL (15-20)
--- NOTE | 2022-06-01 11:23 | HE.PHANOTE ---
vancomycin dosing Level therapeutic at 10.6. Renal function is stable. Continue current regimen, vanco 1000 mg Q12H. Expected AUC 484 with a trough of 13.1. next level scheduled for 06/02 @ 1100. Keegan LockettD
--- NOTE | 2022-06-01 14:37 | HO.POSTANES ---
Post Anesthesia Evaluation Post Anesthesia Evaluation Vital Signs: Vital Signs Temp Pulse Resp BP Pulse Ox O2 Del Method 06/01/22 07:26 96.8 F 66 18 131/60 97 Room Air 06/01/22 03:26 97.4 F 65 18 115/64 98 Room Air Anesthesia: General Endotracheal-GETA Mental Status: Awake Pain Control: Satisfactory Nausea/Vomiting: None Hydration: Adequate Anesthesia-Related Issues: No Anes. Related Issues
[2022-06-01 15:21] VITALS: BP 122/65; PULSE 63; RESP 18; TEMP 36.2; O2SAT 98
[2022-06-01 19:12] VITALS: BP 128/65; PULSE 63; RESP 18; TEMP 36.3; O2SAT 97
[2022-06-01] MEDS: Atorvastatin Calcium 20 MG TABLET PO (20:40)
[2022-06-02] MEDS: vancomycin HCL 1,000 MG in 0.9 % Sodium Chloride 250 ML 270 MG IV ×2 (00:22→12:02)
[2022-06-02 03:37] VITALS: BP 118/69; PULSE 62; RESP 18; TEMP 36.7; O2SAT 98
[2022-06-02 06:21] LABS: INTERNATIONAL NORM RATIO 1.5 (0.9-1.1); Prothrombin Time 17.5 SEC (10.0-13.1)
[2022-06-02 06:27] LABS: Creatinine Clr Calc Pharmacy 126.6; Estimated Glomerular Filt Rate > 60
[2022-06-02] MEDS: cefEPime HCl 2 GM in 0.9 % Sodium Chloride 50 ML IV ×3 (06:30→23:13)
[2022-06-02 07:49] VITALS: BP 124/61; PULSE 58; RESP 16; TEMP 36.7; O2SAT 97
--- NOTE | 2022-06-02 08:22 | W.PM.OPN ---
Operative Note Operative Note Date of Service: 05/30/22 Narrative: Preoperative diagnosis: [] Postop diagnosis: [] Surgeon: [] Slitting And Shipping Supervisor: [] Type of Anesthesia: [] Procedure: [] Condition Post-Op: [] Specimen Removed: [] Estimated blood loss: [] Specimen: [] EBL: [] Complications: [] Preoperative diagnosis: [Extensive necrotic Right hip decubitus ulcer] Postop diagnosis: [Same] Surgeon: [Yasmany] Slitting And Shipping Supervisor:[] Chace HURLEY Type of Anesthesia: MAC Procedure: Debridement right hip decubitus ulcer, involving skin, subcutaneous tissue, muscle, and intramuscular abscess drainage Patient was brought to the operating room, placed in a room table in a supine position, after adequate level of MAC anesthesia was induced, patient was placed in left lateral decubitus position. Right hip wound was prepped and draped in usual sterile fashion and sharp debridement using Metzenbaum scissors and Bovie were used to excise necrotic skin, subcutaneous tissue, and muscle. The final size of the specimen measured approximately 9 x 7 x 3 cm. Intramuscular abscess was drained and necrotic tissue circumferentially dissected out and excised. Cultures were taken from this abscess cavity. There was significant undermining of the ulcer subcutaneously. This extended down to but did not involve the ischial tuberosity. At completion the procedure, the wound was very copious irrigated, secured for hemostasis, and packed with moistened Kerlix followed by fluff gauze followed by ABD dressings were applied. Sponge, needle, and instrument counts were reported to be correct. Patient tolerated procedure well and emerged from anesthesia in stable condition. Condition Post-Op: Stable Specimen Removed: Necrotic soft tissue and muscle Estimated blood loss: Minimal Specimen: [Pathology Complications: Stable
[2022-06-02] MEDS: Ascorbic Acid 500 MG TABLET PO (08:38)
[2022-06-02] MEDS: Ferrous Sulfate 324 MG TABLET.DR PO (08:38)
--- NOTE | 2022-06-02 08:52 | P.PNIM_ITS ---
Subjective Subjective Date of Service: 06/02/22 Interval History: f/u on sepsis, uti, decub ulcer interval history: no new issues s/p OR debridment 05/30 Physical Exam Vital Signs: Vital Signs: Last Vital Signs Temp 98.0 F 06/02/22 07:49 Pulse 58 06/02/22 07:49 Resp 16 06/02/22 07:49 BP 124/61 06/02/22 07:49 Pulse Ox 97 06/02/22 07:49 O2 Del Method 06/02/22 07:49 BMI result Body Mass Index 21.2 Const: Other: General: AO X 3, no acute distress Resp: CTA bilateral CVS: S1,S2,RRR GI: +BS, NT, no distention Skin: See ulcer picuture in H and P Neuro: motor grossly intact Psych: appropriate affect Objective Data Active Medications Acetaminophen (Acetaminophen 325 Mg Tablet) 650 mg PO Q6H PRN PRN Reason: Pain, Mild, fever Last Admin: 05/30/22 20:31 Dose: 650 mg Documented By: TIGRE Ascorbic Acid (Ascorbic Acid 500 Mg Tablet) 500 mg PO DAILY [facility] Last Admin: 06/02/22 08:38 Dose: 500 mg Documented By: ROBLES Atorvastatin Calcium (Atorvastatin Calcium 20 Mg Tablet) 20 mg PO BEDTIME [facility] Last Admin: 06/01/22 20:40 Dose: 20 mg Documented By: TIGRE Ferrous Sulfate (Ferrous Sulfate 324 Mg Tablet.) 324 mg PO DAILY [facility] Last Admin: 06/02/22 08:38 Dose: 324 mg Documented By: ROBELS Vancomycin HCl 1,000 mg/ (Sodium Chloride) 270 mls @ 270 mls/hr IV Q12H [facility] Last Infusion: 06/02/22 01:27 Dose: 0 mls/hr Documented By: TIGRE Cefepime HCl 2 gm/ Sodium (Chloride) 50 mls @ 100 mls/hr IV Q8H [facility] Last Infusion: 06/02/22 07:09 Dose: 0 mls/hr Documented By: TIGRE Omeprazole (Omeprazole 20 Mg Capsule.) 20 mg PO DAILY@0630 PRN PRN Reason: Acid Reflux Pharmacy Consult (Consult Rx Perform Med Rec) 1 each MISCELLANE ONCE PRN PRN Reason: Consult order Pharmacy Consult (Consult Rx Vancomycin Dosing) 1 each MISCELLANE DAILY PRN PRN Reason: Consult order Sodium Chloride (0.9 % Sodium Chloride Flush 3 Ml Syringe) 3 ml IVFLUSH QSHIFT [facility] Last Admin: 06/02/22 07:38 Dose: Not Given Documented By: ROBLES Non-Admin Reason: See Note Sodium Hypochlorite (Sodium Hypochlorite 0.25% 473 Ml Solution) 1 appl TOPICAL DAILY [facility] Last Admin: 06/02/22 08:39 Dose: 1 appl Documented By: ROBLES Warfarin Sodium (Warfarin Sodium 7.5 Mg Tablet) 7.5 mg PO DAILY@1800 [facility] Labs 05/30/22 08:26 06/02/22 05:07 Labs: Laboratory Results - last 24 hr 06/01/22 06/01/22 06/02/22 08:57 10:40 05:07 PT 15.9 H INR 1.4 H Estim Creat Clear Calc 126.6 Estimated GFR > 60 Random Vancomycin 10.6 L 06/02/22 05:07 PT 17.5 H INR 1.5 H Estim Creat Clear Calc Estimated GFR Random Vancomycin Microbiology Microbiology Results: Microbiology 05/30/22 12:53 Gram Stain - Final Sacrum Routine Culture - Final Assessment and Plan (1) Supratherapeutic INR: Status: Acute (2) Paraplegia: Status: Acute (3) Sepsis: Status: Acute (4) Decubitus ulcer, stage 3 with infection: Status: Acute Plan 66-year-old male who is paraplegic following consent wound and is wheelchair bound with PMH including antiphospholipid antibody syndrome, dyslipidemia, GERD, iron deficiency anemia, history of DVT anticoagulated with Coumadin, neurogenic bladder with Ann catheter in place admitted for UTI and decubitus ulcer with sepsis. #Sepsis d/t ulcer, improving, WBC better, fever resolved, ESR 66 continue Abx, Debride in OR 3/3, cultures negative continue Cefepime and vanco, ID is recommending at least 3 weeks of IV Ertapenem PICC line today #UTI--continue Abx as above, culture negative. # history of DVT with antiphospholipid antibody syndrome, check INR, resume coumadin. He's delcined bridging with Lovenox # paraplegia -continue chronic Ann catheter and ostomy care # iron deficiency anemia -H/H stable -continue ferrous sulfate # HLD -continue statin # GERD -continue PPI DNR/DNI DVT prophylaxis-SCPs, resume Coumadin once INR therapeutic Need for inpatient: treatment of sepsis with IV Abx and need for debridment in OR Time Spent With Patient Time: Total time managing care of this patient today ____ minutes. Quality Stroke Does the patient have a stroke diagnosis?: No VTE Prior VTE?: No VTE Risk Level:: Medical - moderate - high VTE Device Contraindication: N/A - Device Ordered VTE Drug Contraindication: Treatment Not Indicated
--- NOTE | 2022-06-02 10:49 | P.PNGS_ITS ---
Subjective Subjective Date of Service: 06/02/22 <Anna Randhawa PA-C - Last Filed: 06/02/22 11:03> 06/03/22 <Kuldeep Jade MD - Last Filed: 06/03/22 13:45> Interval history: No events over the weekend. Wondering plan. <Anna Randhawa PA-C - Last Filed: 06/02/22 11:03> Physical Exam Vital Signs: Vital Signs: Last Vital Signs Temp 98.0 F 06/02/22 07:49 Pulse 58 06/02/22 07:49 Resp 16 06/02/22 07:49 BP 124/61 06/02/22 07:49 Pulse Ox 97 06/02/22 07:49 O2 Del Method 06/02/22 07:49 BMI result Body Mass Index 21.2 <CATINA Mccabe Last Filed: 06/02/22 11:03> Const: General: comfortable, no acute distress and alert <Anna salcido PA-C - Last Filed: 06/02/22 11:03> Resp: Effort & Inspection: normal respiratory effort <CATINA Mccabe Last Filed: 06/02/22 11:03> GI: Other: ostomy present RLQ, soft brown stool in appliance <CATINA Mccabe Last Filed: 06/02/22 11:03> Skin: Other: left buttock decubitus ulcer- granulation tissue at inferior aspect of wound, slough over ischium that extends proximally beneath the undermining skin, no significant drainage noted, no purulence; blanchable erythema of proximal skin edge <CATINA Mccabe Last Filed: 06/02/22 11:03> Objective Data Active Medications Acetaminophen (Acetaminophen 325 Mg Tablet) 650 mg PO Q6H PRN PRN Reason: Pain, Mild, fever Last Admin: 05/30/22 20:31 Dose: 650 mg Documented By: TIGRE Ascorbic Acid (Ascorbic Acid 500 Mg Tablet) 500 mg PO DAILY [facility] Last Admin: 06/02/22 08:38 Dose: 500 mg Documented By: ROBLES Atorvastatin Calcium (Atorvastatin Calcium 20 Mg Tablet) 20 mg PO BEDTIME [facility] Last Admin: 06/01/22 20:40 Dose: 20 mg Documented By: TIGRE Ferrous Sulfate (Ferrous Sulfate 324 Mg Tablet.) 324 mg PO DAILY [facility] Last Admin: 06/02/22 08:38 Dose: 324 mg Documented By: ROBLES Vancomycin HCl 1,000 mg/ (Sodium Chloride) 270 mls @ 270 mls/hr IV Q12H [facility] Last Infusion: 06/02/22 01:27 Dose: 0 mls/hr Documented By: TIGRE Cefepime HCl 2 gm/ Sodium (Chloride) 50 mls @ 100 mls/hr IV Q8H [facility] Last Infusion: 06/02/22 07:09 Dose: 0 mls/hr Documented By: TIGRE Omeprazole (Omeprazole 20 Mg Capsule.) 20 mg PO DAILY@0630 PRN PRN Reason: Acid Reflux Pharmacy Consult (Consult Rx Perform Med Rec) 1 each MISCELLANE ONCE PRN PRN Reason: Consult order Pharmacy Consult (Consult Rx Vancomycin Dosing) 1 each MISCELLANE DAILY PRN PRN Reason: Consult order Sodium Chloride (0.9 % Sodium Chloride Flush 3 Ml Syringe) 3 ml IVFLUSH QSHIFT [facility] Last Admin: 06/02/22 07:38 Dose: Not Given Documented By: ROBLES Non-Admin Reason: See Note Sodium Hypochlorite (Sodium Hypochlorite 0.25% 473 Ml Solution) 1 appl TOPICAL DAILY [facility] Last Admin: 06/02/22 08:39 Dose: 1 appl Documented By: ROBLES Warfarin Sodium (Warfarin Sodium 7.5 Mg Tablet) 7.5 mg PO DAILY@1800 [facility] <Anna Randhawa PA-C - Last Filed: 06/02/22 11:03> Labs CBC & Chem 7: 05/30/22 08:26 06/02/22 05:07 <Anna Randhawa PA-C - Last Filed: 06/02/22 11:03> Labs: Laboratory Results - last 24 hr 06/01/22 06/02/22 06/02/22 10:40 05:07 05:07 PT 17.5 H INR 1.5 H Estim Creat Clear Calc 126.6 Estimated GFR > 60 Random Vancomycin 10.6 L <Anna Randhawa PA-C - Last Filed: 06/02/22 11:03> Microbiology Microbiology Results: Microbiology 05/30/22 12:53 Gram Stain - Final Sacrum Routine Culture - Final <Anna Randhawa PA-C - Last Filed: 06/02/22 11:03> Procedures Date of Service Date of Service: 06/02/22 <Anna aRndhawa PA-C - Last Filed: 06/02/22 11:03> Progress Note: A&P Assessment and plan (1) Paraplegia: Status: Acute <CATINA Mccabe Last Filed: 06/02/22 11:03> (2) Stage 4 decubitus ulcer: Status: Acute <CATINA Mccabe Last Filed: 06/02/22 11:03> Assessment and Plan: 65 year old male with paraplegia, antiphospholipid antibody syndrome on anticoagulation admitted with infected decubitus ulcer of right buttock. Ulcer initially unstageable but at least stage III upon admission as subcutaneous fat was visible. Required debridement involving skin, subcutaneous tissue, muscle, and intramuscular abscess drainage in the OR on 05/30. Ulcer now stageable as stage IV based on OR findings. His wound is overall improved with granulation tissue at inferior aspect however there is some slough present which extends beneath the undermining skin and is difficult to debride at bedside. Therefore recommended further debridement in the OR tomorrow with possible wound vac placement if wound is clean enough. He is agreeable however he does not want any anesthesia. Will add him onto the OR schedule for tomorrow, will make NPO in case he changes his mind regarding anesthesia. Patient comfortable with plan. <Anna Randhawa PA-C - Last Filed: 06/02/22 11:03> Time Spent With Patient Time: Total time managing care of this patient today ____ minutes. <Anna Randhawa PA-C - Last Filed: 06/02/22 11:03> Quality Stroke Does the patient have a stroke diagnosis?: No <CATINA Mccabe Last Filed: 06/02/22 11:03> VTE Prior VTE?: No <CATINA Mccabe Last Filed: 06/02/22 11:03> VTE Risk Level:: Medical - moderate - high <Anna Randhawa PA-C - Last Filed: 06/02/22 11:03> VTE Device Contraindication: N/A - Device Ordered <Anna Randhawa PA-C - Last Filed: 06/02/22 11:03> VTE Drug Contraindication: Treatment Not Indicated <Anna Randhawa PA-C - Last Filed: 06/02/22 11:03>
[2022-06-02 11:57] LABS: Vancomycin Trough 13.2 mcg/mL (10.0-20.0)
--- NOTE | 2022-06-02 13:49 | MHC.CLN ---
F/U DIET=REGULAR. ADDING ENSURE TID TO INCREASE PROTEIN INTAKE TO PROMOTE WOUND HEALING. ENSURE TID PROVIDES 1050 KCALS, 60 G PROTEIN. UNSTAGEABLE WOUND TO RIGHT BUTTOCK. NPO 06/03 FOR WOUND DEBRIDEMENT. CURRENT INTAKE 75-100%. FOLLOW FOR DIET ADVANCEMENT, WOUND HEALING, AND INTAKE.
--- NOTE | 2022-06-02 14:32 | MHC.CM.PN ---
EMR REVIEWED, PER HOSPITALIST PT WILL NEED 3WKS IV ERTAPENEM, PLAN FOR PICC TODAY, REFERRAL PLACED TO [facility] AND PT CURRENTLY ACTIVE W/HVNA WHO HAVE BEEN UPDATED VIA [facility] TO CONT TO FOLLOW D/C NEEDS.
[2022-06-02 15:16] VITALS: BP 112/60; PULSE 65; RESP 18; TEMP 37.2; O2SAT 97
--- NOTE | 2022-06-02 17:09 | HO.MIDLINE ---
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 Using ultrasound guidance, left basilic vein access was obtained on first attempt. [id number] Non-PASV Midline was positioned. The procedure was performed in S272. Ultrasound was used to document vein patency and for needle entry. A formal ultrasound picture was recorded. [employer]er has released the line for use and it is currently dressed with a StatLock, Tegaderm, and CHG disc. Verification has been performed for blood return and line patency. Arm Circumference: 27.5 CM Equipment: BARD PowerGlide ST Midline Catheter Type: [id number] Non-PASV Midline Lot #: [id number]
[2022-06-02] MEDS: Warfarin Sodium 7.5 MG TABLET PO (17:29)
--- NOTE | 2022-06-02 17:51 | PC.NURSE ---
new IV placed to LUE d/t RUE IV being red and burning. Midline placed this evening. performed ressing change this AM. Ostomy intact. barrera care performed.
[2022-06-02 19:31] VITALS: BP 124/62; PULSE 78; RESP 18; TEMP 36.9; O2SAT 98
[2022-06-02] MEDS: Atorvastatin Calcium 20 MG TABLET PO (20:26)
[2022-06-02] MEDS: 0.9 % Sodium Chloride Flush 3 ML SYRINGE IVFLUSH (20:29)
[2022-06-02] MEDS: Heparin Sodium,Porcine Flush 50 UNITS/5 ML SYRINGE IVFLUSH (23:14)
[2022-06-03] VITALS (8 sets, daily range): BP systolic 110–132; BP diastolic 59–72; PULSE 59–82; RESP 12–20; TEMP 36.3–36.7; O2SAT 95–100
[2022-06-03] MEDS: vancomycin HCL 1,000 MG in 0.9 % Sodium Chloride 250 ML 270 MG IV ×2 (00:45→14:23)
[2022-06-03] MEDS: cefEPime HCl 2 GM in 0.9 % Sodium Chloride 50 ML IV ×3 (06:15→21:59)
[2022-06-03 06:36] LABS: INTERNATIONAL NORM RATIO 1.4 (0.9-1.1); Prothrombin Time 15.9 SEC (10.0-13.1)
--- NOTE | 2022-06-03 07:02 | PC.NURSE ---
Colostomy bag was full and due for change, appliance changed Stoma is red and intact, surrounding area is intact.
[2022-06-03 07:08] LABS: Estimated Glomerular Filt Rate > 60
[2022-06-03] MEDS: Heparin Sodium,Porcine Flush 50 UNITS/5 ML SYRINGE IVFLUSH ×2 (07:15→15:40)
[2022-06-03] MEDS: 0.9 % Sodium Chloride Flush 3 ML SYRINGE IVFLUSH ×2 (07:17→15:40)
--- NOTE | 2022-06-03 09:24 | MHC.CM.PN ---
CM MET W/PT TO DISCUSS DISPO, PT REPORTS HE HAS DONE IV ABX AT HOME BEFORE, PT REPORTS HE HAS N PREFERENCE ON [facility] AND IS AGREEABLE TO [facility]IAISON WILL BE IN LATER THIS AM FOR TEACH/REFRESHER, CM WILL FOLLOW UP W/HOSPITALSIT FOR D/C DATE.
--- NOTE | 2022-06-03 12:18 | MHC.SHP ---
Pre-Procedural Eval Section A Date of Service: 06/03/22 The patient is an INPATIENT: Yes The History & Physical has been completed within 30 days and I have reviewed it.: Yes Section B Chief Complaint: UTI,Decubitus ulcer,sepsis Allergies: Allergies Allergy/AdvReac Type Severity Reaction Status Date / Time No Known Allergies Allergy Verified 06/03/22 10:46 [No Known Allergies*] Plan I have reviewed the history and physical and performed a pertinent physical examination on my patient. No changes have occurred unless specified. Time Spent With Patient Time: Total time managing care of this patient today ____ minutes.
--- NOTE | 2022-06-03 14:17 | P.OP_ITS ---
Operative Note Operative Note Date of Service: 06/03/22 Narrative: Preoperative diagnosis: Right hip necrotic decubitus ulcer Postop diagnosis: Same Surgeon : MD Yasmany Senior Telecommunications Engineer: raul Randhawa Type of Anesthesia: Local Procedure: Patient is brought to the operating room, placed in your table in supine position, after the level of local anesthesia was induced, the patient was placed in the left lateral decubitus position. The right hip decubitus had findings as described below. Sharp debridement of the exudative tissue at the wound base and along the skin margins was performed sharply. Wound was very copious irrigated, and secured hemostasis. The wound was quite clean and the decision was made to apply a wound VAC. The appropriately sized wound VAC followed by occlusive dressings were applied. This was somewhat challenging secondary to the skin contours and proximity to the perineum/scrotum, and thigh crease. When connected to the negative pressure device, the wound VAC demonstrated good negative pressure. Sponge, needle, and instrument counts were reported to be correct. Patient tolerated the procedure well and was transported to recovery room in stable condition. Condition Post-Op: Stable Specimen Removed: Necrotic debris Estimated blood loss: Minimal Specimen: None X3 EBL: [] Complications: None Findings; patient is status post debridement a complex/deep right hip decubitus ulcer few days earlier.. Presents here for further debridement and placement of a negative pressure/wound VAC Intraoperative findings demonstrated minimal necrotic skin margins and some exudate of debris at the base of the wound along the ischial tuberosity which were sharply debrided. Wound dimensions are still 9 x 7 x 3 cm
[2022-06-03 15:32] LABS: Vancomycin Random 39.8 mcg/mL (15-20)
--- NOTE | 2022-06-03 16:01 | P.PNIM_ITS ---
Subjective Subjective Date of Service: 06/03/22 Interval History: f/u on sepsis, uti, decub ulcer Review of Systems no new issues s/p OR debridment 05/30 Physical Exam Vital Signs: Vital Signs: Last Vital Signs Temp 97.3 F 06/03/22 14:18 Pulse 69 06/03/22 14:18 Resp 17 06/03/22 14:18 BP 132/66 06/03/22 14:18 Pulse Ox 100 06/03/22 14:18 O2 Del Method 06/03/22 14:18 BMI result Body Mass Index 21.2 General: AO X 3, no acute distress Resp:? CTA bilateral CVS: S1,S2,RRR GI: +BS, NT, no distention Skin:? See ulcer picuture in H and P Neuro:? motor grossly intact Psych: appropriate affect ? Objective Data Active Medications Acetaminophen (Acetaminophen 325 Mg Tablet) 650 mg PO Q6H PRN PRN Reason: Pain, Mild, fever Last Admin: 05/30/22 20:31 Dose: 650 mg Documented By: TIGRE Ascorbic Acid (Ascorbic Acid 500 Mg Tablet) 500 mg PO DAILY [facility] Last Admin: 06/03/22 07:13 Dose: Not Given Documented By: JOON Non-Admin Reason: NPO Atorvastatin Calcium (Atorvastatin Calcium 20 Mg Tablet) 20 mg PO BEDTIME [facility] Last Admin: 06/02/22 20:26 Dose: 20 mg Documented By: DO Ferrous Sulfate (Ferrous Sulfate 324 Mg Tablet.) 324 mg PO DAILY [facility] Last Admin: 06/03/22 07:13 Dose: Not Given Documented By: JOON Non-Admin Reason: NPO Heparin Sodium (Porcine) (Heparin Sodium,Porcine Flush 50 Units/5 Ml Syringe) 50 units IVFLUSH QSHIFT [facility] Last Admin: 06/03/22 15:40 Dose: 50 units Documented By: IRIS Vancomycin HCl 1,000 mg/ (Sodium Chloride) 270 mls @ 270 mls/hr IV Q12H [facility] Last Infusion: 06/03/22 15:31 Dose: 0 mls/hr Documented By: IRIS Cefepime HCl 2 gm/ Sodium (Chloride) 50 mls @ 100 mls/hr IV Q8H [facility] Last Admin: 06/03/22 15:40 Dose: 100 mls/hr Documented By: IRIS Omeprazole (Omeprazole 20 Mg Capsule.) 20 mg PO DAILY@0630 PRN PRN Reason: Acid Reflux Pharmacy Consult (Consult Rx Perform Med Rec) 1 each MISCELLANE ONCE PRN PRN Reason: Consult order Pharmacy Consult (Consult Rx Vancomycin Dosing) 1 each MISCELLANE DAILY PRN PRN Reason: Consult order Sodium Chloride (0.9 % Sodium Chloride Flush 3 Ml Syringe) 3 ml IVFLUSH QSHIFT [facility] Last Admin: 06/03/22 15:40 Dose: 3 ml Documented By: IRIS Sodium Hypochlorite (Sodium Hypochlorite 0.25% 473 Ml Solution) 1 appl TOPICAL DAILY [facility] Last Admin: 06/03/22 07:17 Dose: Not Given Documented By: DABA Non-Admin Reason: pt going to or for wound vac Warfarin Sodium (Warfarin Sodium 7.5 Mg Tablet) 7.5 mg PO DAILY@1800 [facility] Last Admin: 06/02/22 17:29 Dose: 7.5 mg Documented By: NARESHFA Labs 05/30/22 08:26 06/03/22 05:07 Labs: Laboratory Results - last 24 hr 06/03/22 06/03/22 06/03/22 05:07 05:07 14:44 PT 15.9 H INR 1.4 H Estim Creat Clear Calc 129.0 Estimated GFR > 60 Random Vancomycin 39.8 H* Microbiology Microbiology Results: Microbiology 05/28/22 13:56 Blood Culture - Final Blood - Venous No growth after 5 days. 05/28/22 13:56 Blood Culture - Final Blood - Venous No growth after 5 days. Assessment and Plan (1) Supratherapeutic INR: Status: Acute (2) Paraplegia: Status: Acute (3) Sepsis: Status: Acute (4) Decubitus ulcer, stage 3 with infection: Status: Acute Plan 66-year-old male who is paraplegic following consent wound and is wheelchair bound with PMH including antiphospholipid antibody syndrome, dyslipidemia, GERD, iron deficiency anemia, history of DVT anticoagulated with Coumadin, neurogenic bladder with Ann catheter in place admitted for UTI and decubitus ulcer with sepsis. Sepsis d/t ulcer, improving, WBC better, fever resolved, ESR 66 continue Abx, Debride in OR /,adonay further debridement in the OR today with possible wound vac placement if wound is clean enough cultures negative continue Cefepime and vanco, ID is recommending at least 3 weeks of IV Ertapenem PICC line today UTI--continue Abx as above, culture negative. history of DVT with antiphospholipid antibody syndrome, check INR, resume coumadin. He's delcined bridging with Lovenox paraplegia -continue chronic Ann catheter and ostomy care iron deficiency anemia -H/H stable -continue ferrous sulfate HLD -continue statin GERD -continue PPI DNR/DNI DVT prophylaxis-SCPs, resume Coumadin once INR therapeutic Need for inpatient: treatment of sepsis with IV Abx and need for debridment in OR. Time Spent With Patient Time: Total time managing care of this patient today ____ minutes. Quality Stroke Does the patient have a stroke diagnosis?: No VTE Prior VTE?: No VTE Risk Level:: Medical - moderate - high VTE Device Contraindication: N/A - Device Ordered VTE Drug Contraindication: Treatment Not Indicated
[2022-06-03] MEDS: Warfarin Sodium 7.5 MG TABLET PO (17:35)
[2022-06-03] MEDS: Atorvastatin Calcium 20 MG TABLET PO (21:59)
[2022-06-03 22:19] LABS: Vancomycin Random 17.5 mcg/mL (15-20)
--- NOTE | 2022-06-03 22:27 | PHA.PROG ---
Admission Date/Time: May 28, 2022 17:13 Indication: Weight in k.2 kg Adjusted body weight in Kg: [place] body weight in Kg: Obesity Dosing Indication % IBW: Serum Creatinine - Last 168 Hours 05/28/22 05/29/22 05/30/22 13:56 06:35 08:26 Creatinine 0.65 0.52 0.64 05/31/22 06/01/22 06/02/22 05:35 05:09 05:07 Creatinine 0.60 0.51 0.52 06/03/22 05:07 Creatinine 0.51 Estimated CrCl and GFR - Last 168 Hours 05/28/22 05/29/22 05/30/22 13:56 06:35 08:26 Estim Creat Clear Calc 101.2 126.6 102.8 Estimated GFR > 60 > 60 > 60 05/31/22 06/01/22 06/02/22 05:35 05:09 05:07 Estim Creat Clear Calc 109.7 129.0 126.6 Estimated GFR > 60 > 60 > 60 06/03/22 05:07 Estim Creat Clear Calc 129.0 Estimated GFR > 60 Vancomycin Loading Dose: Current Vancomycin Dosing Regimen: Vancomycin Monitoring using AUC goal of 400 - 600 range with trough as surrogate marker: Date and Time for next Vancomycin Level to be drawn: 06/04 @1200 Vancomycin Trough 13.2 mcg/mL (10.0-20.0) 06/02/22 11:17 Pharmacist Comments on Vancomycin Plan: DRAWING ANOTHER RANDOM TOMORROW 06/04 BEFORE 1400 DOSE DUE TO ERROR WITH TIMING OF RANDOM LEVEL DRAWN TODAY 06/03. RANDOM WAS DRAWN WHILE VANCO WAS INFUSING LEADING TO FALSELY HIGH LEVELS. ANOTHER LEVEL WAS DRAWN ABOUT 4 HOURS BEFORE NEXT DOSE BECAUSE PHARMACY WILL BE CLOSING BUT WE WANTED TO BE ABLE TO CHECK LEVELS BEFORE WE LEAVE FOR THE NIGHT. CONTINUE MONITORING TO ENSURE APPROPRIATE LEVELS. Vancomycin dosing will take advantage of [employer] as a clinical decision support tool that uses Bayesian modeling to calculate individual patient's pharmacokinetic parameters and forecast the patient's drug concentration time course with the target goal AUC 24 range of 400 - 600 mg/L/hr.
[2022-06-04] MEDS: vancomycin HCL 1,000 MG in 0.9 % Sodium Chloride 250 ML 270 MG IV ×2 (01:49→13:14)
[2022-06-04] MEDS: Heparin Sodium,Porcine Flush 50 UNITS/5 ML SYRINGE IVFLUSH ×4 (01:49→22:14)
[2022-06-04 02:56] VITALS: BP 106/55; PULSE 61; RESP 16; TEMP 36.6; O2SAT 98
[2022-06-04] MEDS: cefEPime HCl 2 GM in 0.9 % Sodium Chloride 50 ML IV (05:56)
[2022-06-04 06:25] LABS: INTERNATIONAL NORM RATIO 1.6 (0.9-1.1); Prothrombin Time 18.5 SEC (10.0-13.1)
[2022-06-04 06:46] LABS: Creatinine Clr Calc Pharmacy 124.2; Estimated Glomerular Filt Rate > 60
[2022-06-04 07:26] VITALS: BP 125/66; PULSE 62; RESP 18; TEMP 36.7; O2SAT 98
[2022-06-04] MEDS: Ferrous Sulfate 324 MG TABLET.DR PO (08:16)
[2022-06-04] MEDS: Ascorbic Acid 500 MG TABLET PO (08:16)
[2022-06-04] MEDS: Warfarin Sodium 5 MG TABLET PO (09:47)
--- NOTE | 2022-06-04 10:27 | PM.PNGS ---
Subjective Subjective Date of Service: 06/04/22 Interval history: Feeling ok today. No new complaints. Wondering about plan. Physical Exam Vital Signs: Vital Signs: Last Vital Signs Temp 98.1 F 06/04/22 07:26 Pulse 62 06/04/22 07:26 Resp 18 06/04/22 07:26 BP 125/66 06/04/22 07:26 Pulse Ox 98 06/04/22 07:26 O2 Del Method 06/04/22 07:26 BMI result Body Mass Index 21.2 Const: General: comfortable, no acute distress and alert Resp: Effort & Inspection: normal respiratory effort Skin: Other: wound vac in place to sacral decubitus ulcer Objective Data Active Medications Acetaminophen (Acetaminophen 325 Mg Tablet) 650 mg PO Q6H PRN PRN Reason: Pain, Mild, fever Last Admin: 05/30/22 20:31 Dose: 650 mg Documented By: TIGRE Ascorbic Acid (Ascorbic Acid 500 Mg Tablet) 500 mg PO DAILY [facility] Last Admin: 06/04/22 08:16 Dose: 500 mg Documented By: ANA MARÍA Atorvastatin Calcium (Atorvastatin Calcium 20 Mg Tablet) 20 mg PO BEDTIME [facility] Last Admin: 06/03/22 21:59 Dose: 20 mg Documented By: AMY Ferrous Sulfate (Ferrous Sulfate 324 Mg Tablet.) 324 mg PO DAILY [facility] Last Admin: 06/04/22 08:16 Dose: 324 mg Documented By: ANA MARÍA Heparin Sodium (Porcine) (Heparin Sodium,Porcine Flush 50 Units/5 Ml Syringe) 50 units IVFLUSH QSHIFT [facility] Last Admin: 06/04/22 08:16 Dose: 50 units Documented By: ANA MARÍA Vancomycin HCl 1,000 mg/ (Sodium Chloride) 270 mls @ 270 mls/hr IV Q12H [facility] Last Infusion: 06/04/22 02:56 Dose: 0 mls/hr Documented By: AMY Cefepime HCl 2 gm/ Sodium (Chloride) 50 mls @ 100 mls/hr IV Q8H [facility] Last Infusion: 06/04/22 07:00 Dose: 0 mls/hr Documented By: ANA MARÍA Omeprazole (Omeprazole 20 Mg Capsule.) 20 mg PO DAILY@0630 PRN PRN Reason: Acid Reflux Pharmacy Consult (Consult Rx Perform Med Rec) 1 each MISCELLANE ONCE PRN PRN Reason: Consult order Pharmacy Consult (Consult Rx Vancomycin Dosing) 1 each MISCELLANE DAILY PRN PRN Reason: Consult order Sodium Chloride (0.9 % Sodium Chloride Flush 3 Ml Syringe) 3 ml IVFLUSH QSHIFT [facility] Last Admin: 06/04/22 08:20 Dose: Not Given Documented By: ANA MARÍA Non-Admin Reason: IV Running Sodium Hypochlorite (Sodium Hypochlorite 0.25% 473 Ml Solution) 1 appl TOPICAL DAILY [facility] Last Admin: 06/04/22 09:48 Dose: Not Given Documented By: ANA MARÍA Non-Admin Reason: wound vac Warfarin Sodium (Warfarin Sodium 7.5 Mg Tablet) 7.5 mg PO DAILY@1800 [facility] Last Admin: 06/03/22 17:35 Dose: 7.5 mg Documented By: IRIS Labs 05/30/22 08:26 06/04/22 05:45 Labs: Laboratory Results - last 24 hr 06/03/22 06/03/22 06/04/22 14:44 21:53 05:45 PT INR Estim Creat Clear Calc 124.2 Estimated GFR > 60 Random Vancomycin 39.8 H* 17.5 06/04/22 05:45 PT 18.5 H INR 1.6 H Estim Creat Clear Calc Estimated GFR Random Vancomycin Procedures Date of Service Date of Service: 06/04/22 Progress Note: A&P Assessment and plan (1) Stage 4 decubitus ulcer: Status: Acute (2) Paraplegia: Status: Acute (3) Encounter for management of wound VAC: Status: Acute Plan 65 year old male with paraplegia, antiphospholipid antibody syndrome on anticoagulation admitted with infected decubitus ulcer of right buttock. Ulcer initially unstageable but at least stage III upon admission as subcutaneous fat was visible. Required debridement involving skin, subcutaneous tissue, muscle, and intramuscular abscess drainage in the OR on 05/30. Stage IV based on OR findings. Underwent debridement of ulcer, wound vac placement in OR yesterday. Wound vac remains in place today with good seal, serosanguineous output in cannister. His discharge plan is up in the air right now about home with VNA versus STR. This will determine timeline of wound vac dressing change, either or Thursday. Case management to follow up. Time Spent With Patient Time: Total time managing care of this patient today ____ minutes. Quality Stroke Does the patient have a stroke diagnosis?: No VTE Prior VTE?: No VTE Risk Level:: Medical - moderate - high VTE Device Contraindication: N/A - Device Ordered VTE Drug Contraindication: Treatment Not Indicated
--- NOTE | 2022-06-04 11:19 | MHC.CLN ---
F/U DIET=REGULAR. ADDING ENSURE TID TO INCREASE PROTEIN INTAKE TO PROMOTE WOUND HEALING. ENSURE TID PROVIDES 1050 KCALS, 60 G PROTEIN. UNSTAGEABLE WOUND TO RIGHT BUTTOCK. DEBRIDEMENT / AND WOUND VAC PLACED. USUAL PO INTAKE 75-100%. FOLLOW FOR WOUND HEALING AND INTAKE.
[2022-06-04 12:09] LABS: Vancomycin Random 16.9 mcg/mL (15-20)
--- NOTE | 2022-06-04 14:09 | MHC.CM.PN ---
PATIENT IS AGREEABLE TO PAYING OUT OF POCKET FOR HIS 3 WEEKS OF IV ABX (CLOSE TO $700/WEEK) (PER HIS CONVERSATION WITH [facility]) [facility] NEEDS A CREDIT CARD TO BILL BEFORE THEY CAN SHIP OUT HIS ABX. CREDIT CARD IS AT HOME. T/W TO TALK WITH AURY IN HOPES OF SECURING HIS CARD NUMBER. SURGICAL PA MADE AWARE
--- NOTE | 2022-06-04 14:47 | HO.PM.IMPN ---
Subjective Subjective Date of Service: 06/04/22 Interval History: f/u on sepsis, uti, decub ulcer Review of Systems no new issues,s/p OR debridment 06/03 no fevers or chills Physical Exam Vital Signs: Vital Signs: Last Vital Signs Temp 98.1 F 06/04/22 07:26 Pulse 62 06/04/22 07:26 Resp 18 06/04/22 07:26 BP 125/66 06/04/22 07:26 Pulse Ox 98 06/04/22 07:26 O2 Del Method 06/04/22 07:26 BMI result Body Mass Index 21.2 ?General: AO X 3, no acute distress Resp:? CTA bilateral CVS: S1,S2,RRR GI: +BS, NT, no distention Skin:? See ulcer picuture in H and P Neuro:? motor grossly intact Psych: appropriate affect Objective Data Active Medications Acetaminophen (Acetaminophen 325 Mg Tablet) 650 mg PO Q6H PRN PRN Reason: Pain, Mild, fever Last Admin: 05/30/22 20:31 Dose: 650 mg Documented By: TIGRE Ascorbic Acid (Ascorbic Acid 500 Mg Tablet) 500 mg PO DAILY [facility] Last Admin: 06/04/22 08:16 Dose: 500 mg Documented By: ANA MARÍA Atorvastatin Calcium (Atorvastatin Calcium 20 Mg Tablet) 20 mg PO BEDTIME [facility] Last Admin: 06/03/22 21:59 Dose: 20 mg Documented By: AMY Ferrous Sulfate (Ferrous Sulfate 324 Mg Tablet.) 324 mg PO DAILY [facility] Last Admin: 06/04/22 08:16 Dose: 324 mg Documented By: ANA MARÍA Heparin Sodium (Porcine) (Heparin Sodium,Porcine Flush 50 Units/5 Ml Syringe) 50 units IVFLUSH QSHIFT [facility] Last Admin: 06/04/22 08:16 Dose: 50 units Documented By: ANA MARÍA Meropenem 1 gm/ Sodium (Chloride) 100 mls @ 200 mls/hr IV Q8H [facility] Last Admin: 06/04/22 14:23 Dose: 200 mls/hr Documented By: ANA MARÍA Omeprazole (Omeprazole 20 Mg Capsule.) 20 mg PO DAILY@0630 PRN PRN Reason: Acid Reflux Pharmacy Consult (Consult Rx Perform Med Rec) 1 each MISCELLANE ONCE PRN PRN Reason: Consult order Pharmacy Consult (Consult Rx Vancomycin Dosing) 1 each MISCELLANE DAILY PRN PRN Reason: Consult order Sodium Chloride (0.9 % Sodium Chloride Flush 3 Ml Syringe) 3 ml IVFLUSH QSHIFT [facility] Last Admin: 06/04/22 08:20 Dose: Not Given Documented By: ANA MARÍA Non-Admin Reason: IV Running Sodium Hypochlorite (Sodium Hypochlorite 0.25% 473 Ml Solution) 1 appl TOPICAL DAILY [facility] Last Admin: 06/04/22 09:48 Dose: Not Given Documented By: ANA MARÍA Non-Admin Reason: wound vac Warfarin Sodium (Warfarin Sodium 7.5 Mg Tablet) 7.5 mg PO DAILY@1800 [facility] Last Admin: 06/03/22 17:35 Dose: 7.5 mg Documented By: IRIS Labs 05/30/22 08:26 06/04/22 05:45 Labs: Laboratory Results - last 24 hr 06/03/22 06/03/22 06/04/22 14:44 21:53 05:45 PT INR Estim Creat Clear Calc 124.2 Estimated GFR > 60 Random Vancomycin 39.8 H* 17.5 06/04/22 06/04/22 05:45 11:46 PT 18.5 H INR 1.6 H Estim Creat Clear Calc Estimated GFR Random Vancomycin 16.9 Assessment and Plan (1) Supratherapeutic INR: Status: Acute (2) Paraplegia: Status: Acute (3) Sepsis: Status: Acute (4) Decubitus ulcer, stage 3 with infection: Status: Acute Plan 66-year-old male who is paraplegic following consent wound and is wheelchair bound with PMH including antiphospholipid antibody syndrome, dyslipidemia, GERD, iron deficiency anemia, history of DVT anticoagulated with Coumadin, neurogenic bladder with Ann catheter in place admitted for UTI and decubitus ulcer with sepsis. Sepsis d/t ulcer, improving, WBC better, fever resolved, ESR 66 continue Abx, Debride in OR 05/30,adonay further debridement in the OR today with possible wound vac placement if wound is clean enough cultures negative s/p midline insertion on 06/02/22. ID is recommending -off Cefepime and vanco, switch to meropenem-will needs 3 weeks of antibiotics upon discharge. Underwent debridement of ulcer, wound vac placement in OR yesterday. Wound vac remains in place today with good seal, serosanguineous output in cannister.? wound vac dressing change, either or Thursday. UTI--continue Abx as above, culture negative. history of DVT with antiphospholipid antibody syndrome, He's delcined bridging with Lovenox inr 1.6,adjusted warfarin paraplegia -continue chronic Ann catheter and ostomy care iron deficiency anemia -H/H stable -continue ferrous sulfate HLD -continue statin GERD -continue PPI DNR/DNI DVT prophylaxis-SCPs, resume Coumadin once INR therapeutic Need for inpatient: treatment of sepsis with IV Abx Time Spent With Patient Time: Total time managing care of this patient today ____ minutes. Quality Stroke Does the patient have a stroke diagnosis?: No VTE Prior VTE?: No VTE Risk Level:: Medical - moderate - high VTE Device Contraindication: N/A - Device Ordered VTE Drug Contraindication: Treatment Not Indicated
[2022-06-04 15:42] VITALS: BP 110/59; PULSE 62; RESP 16; TEMP 36.6; O2SAT 97
[2022-06-04] MEDS: Warfarin Sodium 7.5 MG TABLET PO (16:57)
[2022-06-04 19:57] VITALS: BP 108/59; PULSE 61; RESP 16; TEMP 36.4; O2SAT 96
[2022-06-04] MEDS: Atorvastatin Calcium 20 MG TABLET PO (21:34)
[2022-06-04] MEDS: 0.9 % Sodium Chloride Flush 3 ML SYRINGE IVFLUSH (22:14)
[2022-06-05 04:00] VITALS: BP 117/64; PULSE 58; RESP 16; TEMP 36.1; O2SAT 97
[2022-06-05 06:50] LABS: INTERNATIONAL NORM RATIO 2.1 (0.9-1.1); Prothrombin Time 24.4 SEC (10.0-13.1)
[2022-06-05 06:57] LABS: Creatinine Clr Calc Pharmacy 101.2; Estimated Glomerular Filt Rate > 60
[2022-06-05] MEDS: Ferrous Sulfate 324 MG TABLET.DR PO (07:57)
[2022-06-05] MEDS: Ascorbic Acid 500 MG TABLET PO (07:57)
[2022-06-05] MEDS: Heparin Sodium,Porcine Flush 50 UNITS/5 ML SYRINGE IVFLUSH ×3 (07:57→21:56)
[2022-06-05] MEDS: 0.9 % Sodium Chloride Flush 3 ML SYRINGE IVFLUSH ×2 (07:57→15:41)
[2022-06-05 08:00] VITALS: BP 127/80; PULSE 62; RESP 20; TEMP 36.5; O2SAT 97
--- NOTE | 2022-06-05 08:24 | PM.PNGS ---
Subjective Subjective Date of Service: 06/05/22 Interval history: No problems with the wound vac. Has chosen to go home with VNA and states that if he isnt discharged today he is leaving AMA. Physical Exam Vital Signs: Vital Signs: Last Vital Signs Temp 97.0 F 06/05/22 04:00 Pulse 58 06/05/22 04:00 Resp 16 06/05/22 04:00 BP 117/64 06/05/22 04:00 Pulse Ox 97 06/05/22 04:00 O2 Del Method 06/05/22 04:00 BMI result Body Mass Index 21.2 Const: General: comfortable, no acute distress and alert Resp: Effort & Inspection: normal respiratory effort Skin: Other: wound vac in place to decubitus ulcer Objective Data Active Medications Acetaminophen (Acetaminophen 325 Mg Tablet) 650 mg PO Q6H PRN PRN Reason: Pain, Mild, fever Last Admin: 05/30/22 20:31 Dose: 650 mg Documented By: TIGRE Ascorbic Acid (Ascorbic Acid 500 Mg Tablet) 500 mg PO DAILY [facility] Last Admin: 06/05/22 07:57 Dose: 500 mg Documented By: ANA MARÍA Atorvastatin Calcium (Atorvastatin Calcium 20 Mg Tablet) 20 mg PO BEDTIME [facility] Last Admin: 06/04/22 21:34 Dose: 20 mg Documented By: JONG Ferrous Sulfate (Ferrous Sulfate 324 Mg Tablet.) 324 mg PO DAILY [facility] Last Admin: 06/05/22 07:57 Dose: 324 mg Documented By: ANA MARÍA Heparin Sodium (Porcine) (Heparin Sodium,Porcine Flush 50 Units/5 Ml Syringe) 50 units IVFLUSH QSHIFT [facility] Last Admin: 06/05/22 07:57 Dose: 50 units Documented By: ANA MARÍA Meropenem 1 gm/ Sodium (Chloride) 100 mls @ 200 mls/hr IV Q8H [facility] Last Infusion: 06/05/22 05:54 Dose: 0 mls/hr Documented By: JONG Omeprazole (Omeprazole 20 Mg Capsule.) 20 mg PO DAILY@0630 PRN PRN Reason: Acid Reflux Pharmacy Consult (Consult Rx Perform Med Rec) 1 each MISCELLANE ONCE PRN PRN Reason: Consult order Pharmacy Consult (Consult Rx Vancomycin Dosing) 1 each MISCELLANE DAILY PRN PRN Reason: Consult order Sodium Chloride (0.9 % Sodium Chloride Flush 3 Ml Syringe) 3 ml IVFLUSH QSHIFT [facility] Last Admin: 06/05/22 07:57 Dose: 3 ml Documented By: ANA MARÍA Sodium Hypochlorite (Sodium Hypochlorite 0.25% 473 Ml Solution) 1 appl TOPICAL DAILY [facility] Last Admin: 06/05/22 08:01 Dose: Not Given Documented By: ANA MARÍA Non-Admin Reason: wound vac Warfarin Sodium (Warfarin Sodium 7.5 Mg Tablet) 7.5 mg PO DAILY@1800 [facility] Last Admin: 06/04/22 16:57 Dose: 7.5 mg Documented By: ANA MARÍA Labs 05/30/22 08:26 06/05/22 05:21 Labs: Laboratory Results - last 24 hr 06/04/22 06/05/22 06/05/22 11:46 05:21 05:21 PT 24.4 H INR 2.1 H Estim Creat Clear Calc 101.2 Estimated GFR > 60 Random Vancomycin 16.9 Procedures Date of Service Date of Service: 06/05/22 Progress Note: A&P Assessment and plan (1) Encounter for management of wound VAC: Status: Acute (2) Stage 4 decubitus ulcer: Status: Acute Plan 65 year old male with paraplegia, antiphospholipid antibody syndrome on anticoagulation admitted with infected decubitus ulcer of right buttock. Ulcer initially unstageable but at least stage III upon admission as subcutaneous fat was visible. Required debridement involving skin, subcutaneous tissue, muscle, and intramuscular abscess drainage in the OR on 05/30. Stage IV based on OR findings. Wound vac placed on 06/03. Plan for wound vac change today. Home unit ordered yesterday. If wound remains clean, stable for dc from surgical standpoint. Patient comfortable with plan. Plan home with VNA services for wound vac, wound care referral. Time Spent With Patient Time: Total time managing care of this patient today ____ minutes. Quality Stroke Does the patient have a stroke diagnosis?: No VTE Prior VTE?: No VTE Risk Level:: Medical - moderate - high VTE Device Contraindication: N/A - Device Ordered VTE Drug Contraindication: Treatment Not Indicated
--- NOTE | 2022-06-05 11:44 | P.BOP_ITS ---
Brief Operative Note Date of Service: 06/05/22 Pre-op diagnosis: stage IV decubitus ulcer, wound vac in place Post-op diagnosis: same Procedure: wound vac dressing change Patient was brought to the OR for dressing change for ease of positioning and staff. He was positioned sloppy lateral. Wound vac dressing removed. Wound inspected and noted to have good granulation tissue, no areas of necrosis and no need for further debridement. Small wound vac dressing replaced with good seal noted. Patient tolerated this well. He was transferred back to the floor. Surgeon: Kuldeep Jade MD Anesthesia: none Was an Occupational Health Rn used for this Procedure?: Yes Occupational Health Rn: Anna Randhawa Estimated blood loss (mL): 0 Pathology: none sent Condition: stable Disposition: floor
[2022-06-05 12:22] LABS: Vancomycin Trough 9.3 mcg/mL (10.0-20.0)
--- NOTE | 2022-06-05 13:08 | MHC.CM.PN ---
PATIENT DOES NOT HAVE HIS CREDIT CARD OT SECURE ABX DELIVERY (PER [facility]) THIS LICENSED PHYSICAL THERAPIST ASSISTANT ASKED PATIENT IS CALLING CREDIT CARD COMPANY WOULD BE A GOOD IDEA, IS THAT A SAFE DC PLAN COULD BE FACILITATED PATIENT BEGAN TO SWEAR AT THIS LICENSED PHYSICAL THERAPIST ASSISTANT, ASKING WHO DO WE THINK WE ARE AND HE IS LEAVING PATIENT CONTINUED TO BE VERBALLY AGGRESSIVE DESPITE T/W REMINDED HIM TO NOT SPEAK AGGRESSIVELY, WE ARE HERE TO HELP. PATIENT THEN DEMANDED TO SEE THE DOCTOR (USING EXPLETIVES) THIS LICENSED PHYSICAL THERAPIST ASSISTANT REMINDED THAT THIS WILL NOT OCCUR UNTIL HE IS MORE CALM AND ABLE TO PARTICIPATE IN MEANINGFUL CONVERSATION. PATIENT AGAIN STATES HE IS DISCHARGING HIMSELF. PANEL COVERER, RN, AND HOSPITALIST MADE AWARE OF CONVERSATION UPON CONSIDERING HIS OPTIONS, PATIENT STATES THAT HE HAS A CREDIT CARD ON HIS PHONE TO PAY FOR $300 OF HIS ALMOST $700 WEEKLY COST REQUEST SENT TO [facility] TO CALL PATIENT AND ARRANGE CASE MANAGEMENT AWAITING RESULTS. RN AWARE .
--- NOTE | 2022-06-05 14:39 | MHC.CM.PN ---
CALL TO [facility] @[phone] HOME UNIT ORDERED AND REQUESTED TO BE DELIVERED TO ROOM 387 TOMORROW. SURGICAL PA AND RN AWARE OF PLAN. [facility] AND [facility] ALSO AWARE OF PLAN. PATIENT WILL PAY FOR 3 DAYS OF IV ABX AND THEN (ONCE HOME) WILL PURCHASE THE REMAINING ABX FOR HIS CONTINUED NEEDS (ARRANGED WITH [facility] AND MD NOTIFIED) PATIENT WILL NEED BLS TRANSPORT HOME
--- NOTE | 2022-06-05 15:17 | HO.PM.IMPN ---
Subjective Subjective Date of Service: 06/06/22 Interval History: f/u on sepsis, uti, decub ulcer Review of Systems no new issues,s/p OR debridment 06/03 no fevers or chills Physical Exam Vital Signs: Vital Signs: Last Vital Signs Temp 97.7 F 06/05/22 08:00 Pulse 62 06/05/22 08:00 Resp 20 06/05/22 08:00 BP 127/80 06/05/22 08:00 Pulse Ox 97 06/05/22 08:00 O2 Del Method 06/05/22 08:00 BMI result Body Mass Index 21.2 ? ?General: AO X 3, no acute distress Resp:? CTA bilateral CVS: S1,S2,RRR GI: +BS, NT, no distention Skin:? See ulcer picuture in H and P Neuro:? motor grossly intact Psych: appropriate affect Objective Data Active Medications Acetaminophen (Acetaminophen 325 Mg Tablet) 650 mg PO Q6H PRN PRN Reason: Pain, Mild, fever Last Admin: 05/30/22 20:31 Dose: 650 mg Documented By: TIGRE Ascorbic Acid (Ascorbic Acid 500 Mg Tablet) 500 mg PO DAILY [facility] Last Admin: 06/05/22 07:57 Dose: 500 mg Documented By: ANA MARÍA Atorvastatin Calcium (Atorvastatin Calcium 20 Mg Tablet) 20 mg PO BEDTIME [facility] Last Admin: 06/04/22 21:34 Dose: 20 mg Documented By: JONG Ferrous Sulfate (Ferrous Sulfate 324 Mg Tablet.) 324 mg PO DAILY [facility] Last Admin: 06/05/22 07:57 Dose: 324 mg Documented By: ANA MARÍA Heparin Sodium (Porcine) (Heparin Sodium,Porcine Flush 50 Units/5 Ml Syringe) 50 units IVFLUSH QSHIFT [facility] Last Admin: 06/05/22 07:57 Dose: 50 units Documented By: ANA MARÍA Meropenem 1 gm/ Sodium (Chloride) 100 mls @ 200 mls/hr IV Q8H [facility] Last Admin: 06/05/22 14:59 Dose: 200 mls/hr Documented By: ANA MARÍA Omeprazole (Omeprazole 20 Mg Capsule.) 20 mg PO DAILY@0630 PRN PRN Reason: Acid Reflux Pharmacy Consult (Consult Rx Perform Med Rec) 1 each MISCELLANE ONCE PRN PRN Reason: Consult order Pharmacy Consult (Consult Rx Vancomycin Dosing) 1 each MISCELLANE DAILY PRN PRN Reason: Consult order Sodium Chloride (0.9 % Sodium Chloride Flush 3 Ml Syringe) 3 ml IVFLUSH QSHIFT [facility] Last Admin: 06/05/22 07:57 Dose: 3 ml Documented By: ANA MARÍA Sodium Hypochlorite (Sodium Hypochlorite 0.25% 473 Ml Solution) 1 appl TOPICAL DAILY [facility] Last Admin: 06/05/22 08:01 Dose: Not Given Documented By: ANA MARÍA Non-Admin Reason: wound vac Warfarin Sodium (Warfarin Sodium 7.5 Mg Tablet) 7.5 mg PO DAILY@1800 [facility] Last Admin: 06/04/22 16:57 Dose: 7.5 mg Documented By: ANA MARÍA Labs 05/30/22 08:26 06/05/22 05:21 Labs: Laboratory Results - last 24 hr 06/05/22 06/05/22 06/05/22 05:21 05:21 11:49 PT 24.4 H INR 2.1 H Estim Creat Clear Calc 101.2 Estimated GFR > 60 Vancomycin Trough 9.3 L Assessment and Plan (1) Decubitus ulcer, stage 3 with infection: Status: Acute (2) Supratherapeutic INR: Status: Acute (3) Encounter for management of wound VAC: Status: Acute (4) Sepsis: Status: Acute (5) UTI (urinary tract infection): Status: Acute Plan 66-year-old male who is paraplegic following consent wound and is wheelchair bound with PMH including antiphospholipid antibody syndrome, dyslipidemia, GERD, iron deficiency anemia, history of DVT anticoagulated with Coumadin, neurogenic bladder with Ann catheter in place admitted for UTI and decubitus ulcer with sepsis. Sepsis d/t ulcer, improving, WBC better, fever resolved, ESR 66 continue Abx,? Debride in OR 05/30,adonay further debridement in the OR today with possible wound vac placement if wound is clean enough cultures negative s/p midline insertion on 06/02/22. ID is recommending -off Cefepime and vanco, switch to meropenem-will needs? 3 weeks of antibiotics? upon discharge. Underwent debridement of ulcer, wound vac placement in OR yesterday. Wound vac remains in place today with good seal, serosanguineous output in cannister.? wound vac dressing change cm-working on antibitics arrangement,he is refusing to go to rehab. he is very uncooperative UTI--continue Abx as above, culture negative. history of DVT with antiphospholipid antibody syndrome,? He's delcined bridging with Lovenox inr 1.6,adjusted warfarin ?paraplegia -continue chronic Ann catheter and ostomy care iron deficiency anemia -H/H stable -continue ferrous sulfate HLD -continue statin ?GERD -continue PPI DNR/DNI DVT prophylaxis-SCPs, resume Coumadin once INR therapeutic Need for inpatient: treatment of sepsis with IV Abx,pending wound vac change and antibiotics arrangement. Time Spent With Patient Time: Total time managing care of this patient today ____ minutes. Quality Stroke Does the patient have a stroke diagnosis?: No VTE Prior VTE?: No VTE Risk Level:: Medical - moderate - high VTE Device Contraindication: N/A - Device Ordered VTE Drug Contraindication: Treatment Not Indicated
[2022-06-05 16:00] VITALS: BP 111/61; PULSE 67; RESP 18; TEMP 36.6; O2SAT 96
[2022-06-05] MEDS: Warfarin Sodium 7.5 MG TABLET PO (17:12)
[2022-06-05 20:00] VITALS: BP 113/63; PULSE 68; RESP 18; TEMP 36.3; O2SAT 97
[2022-06-05] MEDS: Atorvastatin Calcium 20 MG TABLET PO (21:20)
[2022-06-06 03:37] VITALS: BP 102/56; PULSE 61; RESP 18; TEMP 36.7; O2SAT 96
[2022-06-06 06:38] LABS: INTERNATIONAL NORM RATIO 2.3 (0.9-1.1)
[2022-06-06 07:57] VITALS: BP 121/69; PULSE 64; RESP 17; TEMP 36.8; O2SAT 97
[2022-06-06] MEDS: Heparin Sodium,Porcine Flush 50 UNITS/5 ML SYRINGE IVFLUSH (08:09)
[2022-06-06] MEDS: Ferrous Sulfate 324 MG TABLET.DR PO (08:09)
[2022-06-06] MEDS: Ascorbic Acid 500 MG TABLET PO (08:09)
[2022-06-06] MEDS: Ertapenem Sodium 1 GM in 0.9 % Sodium Chloride 50 ML IV (11:24)
--- NOTE | 2022-06-06 11:27 | P.DS_ITS ---
DS: Providers Provider Date of Service: 06/06/22 Date of admission: 05/28/22 17:13 Date of discharge: 06/06/22 Primary care physician: ANTOINE Panchal Consults: 05/28/22 17:25 Consult to General Surgery Routine Consulting Provider: Cortez Croft Reason for consultation: decubitus ulcer right buttock 05/28/22 21:49 Consult to Infectious Diseases Routine Consulting Provider: Dahlia Tanner Reason for consultation: stage 4-5? decubitus ulcer right buttock sepsis Attending physician on discharge: Vivek Moody DS: Diagnosis Discharge Diagnosis (1) Encounter for management of wound VAC: Status: Acute (2) UTI (urinary tract infection): Status: Acute (3) Sepsis: Status: Acute (4) Paraplegia: Status: Acute (5) Supratherapeutic INR: Status: Acute (6) Decubitus ulcer, stage 3 with infection: Status: Acute DS: Summary Hospital Course Hospital Course: 66-year-old male who is paraplegic following consent wound and is wheelchair bound with PMH including antiphospholipid antibody syndrome, dyslipidemia, GERD, iron deficiency anemia, history of DVT anticoagulated with Coumadin, neurogenic bladder with Ann catheter in place presented to the ED via EMS earlier today for evaluation of hematuria, urinary tract infection, and a decubitus ulcer of the right buttock.? According to the patient, the ulcer has been present for about 1 month, although per his chart it appears he has had a chronic sacral decubitus ulcer and at this time it is unclear whether this is the same wound at present.? He does have VNA in place who is been changing the dressing every other day with alginate but has noted increased drainage and odor from the wound.? He was also supposed to be following with the wound clinic in 2 days for an initial visit.? He is endorsing chills but denies any known fever.? He also states that his urine was tested about 6 days ago and was reportedly found have a urinary tract infection with hematuria and was started on an Levaquin but for whatever reason this prescription was not available at the pharmacy and was never started.? On arrival to the ED, vitals stable but did develop fever of 102.8 with tachycardia of 105.? Blood pressure stable.? Leukocytosis of 22.0.? PTT 72.5, INR 5.9.? Renal function baseline, electrolyte levels normal.? Lactic acid 1.3.? Urinalysis with 2+ leukocytes, positive nitrites, 3+ blood, 1+ protein, positive urinary sediment, 4+ bacteria.? CT pelvis to evaluate for osteo is pending. In the ED, patient given IV NS at 30 mL/kilogram, 2.5 mg vitamin K, 2 g IV ceftriaxone, 1500 mg IV vancomycin, and Tylenol. Hospital course: Patient was admitted for sepsis due to UTI and also concern of deep decubitus ulcer management : Started on broad-spectrum antibiotics, blood culture sent and seen by infcetious disease as well as seurgery-Patient was seen by surgery and underwent again debridement of ulcer and wound VAC placement , discussed with ID and surgery -blood culture negative , no fevers ,leucocytosis improving, in addition is wound VAC dressing was changed yesterday as well as wound is granulating well-patient will be going home with wound VAC. currently ID Recommended to change antibiotics ertapenem 3 weeks duration upon discharge, wound vac care with vna/instructions and dressing change as per surgery. Consider checking CBC, CMP, ESR, CRP Q weekly while on antibiotics. history of DVT with antiphospholipid antibody syndrome:INR therapeutic-monitor outpatient. Patient is to follow-up with PCP and surgery out patiently. plan: Please complete antibiotic course, monitorCBC, CMP, ESR, CRP Q weekly while on antibiotics. Monitor INR out patiently Patient was strongly advised-get his antibiotic course completed, so far he used his credit card for 3-4 days antibiotics , he says he has another credit card at home to use for further antibiotic duration. He was strongly advised if he will get any issues with the credit card at home to get antibiotics-then he needs to go to nearest emergency room for further antibiotic therapy. Patient does not want to go to rehab for antibiotic count, gets upset and become uncooperative. He wants to go home. In addition patient was also advised to consider outpatient urology evaluation for possible management of his Ann, if it can be taken out. Will defer it to outpatiently with PCP . Going home with VNA. patient need to follow up with wound care ,surgery and pcp outpatient. Time Spent with Patient Time attestation: Total time managing care of this patient today ____ minutes. Discharge coordination time: Greater than 30 minutes Quality: Safe Use of Opioids Does Pt have an Active Cancer Diagnosis on the Problem List?: No Quality: Stroke Does the patient have a stroke diagnosis?: No Physical Exam Vital Signs: Vital Signs: Last Vital Signs Temp 98.3 F 06/06/22 07:57 Pulse 64 06/06/22 07:57 Resp 17 06/06/22 07:57 BP 121/69 06/06/22 07:57 Pulse Ox 97 06/06/22 07:57 O2 Del Method 06/06/22 07:57 BMI result Body Mass Index 21.2 General: AO X 3, no acute distress Resp:? CTA bilateral CVS: S1,S2,RRR GI: +BS, NT, no distention Skin:? wound vac in place to decubitus ulcer, as per surgery note( granulating tissue). Neuro:? motor grossly intact Psych: appropriate affect DS: Data Data Completed and Pending Completed studies during hospitalization [Text1]: Pending at discharge 05/30/22 12:59 Surgical [PTH] Routine Labs on day of discharge: Laboratory Results - last 24 hr 06/05/22 06/06/22 11:49 05:46 PT 27.0 H INR 2.3 H Vancomycin Trough 9.3 L Imaging Chest x-ray: Radiologist's impression: ITS Impressions Pelvis CT 05/28/22 15:23 IMPRESSION: 1. Large right inferomedial gluteal soft tissue wound extending deep to the posterior inferior margin of the right inferior pubic ramus as well as inferomedially into the right perineum possibly right scrotum. The subjacent right inferior pubic ramus shows no definitive evidence for osteomyelitis. 2. Moderate colonic/rectal stool burden. Discharge Plan Discharge Anticipated Discharge Date/Time: 06/06/22 11:00 Patient Disposition: Home Health Service Discharge Diagnosis: sepsis uti, decubti ulcer Referrals: [facility] [place] [facility] [Provider Group] - 1 Week Cortez Dalton FNP-BC [Primary Care Provider] - 1 Week Kuldeep Jade MD [Physician] - 2 Weeks Discharge Medications: New ertapenem 1 gram recon soln 1 g IV DAILY Qty: 20 0RF Rx Instructions: end date 06/26/22 HySept 0.25 % Solution 1 appl topical DAILY Qty: 1 0RF Continued warfarin 5 mg tablet 5 mg PO DIRECTED 90 Days Qty: 90 8RF Protocol: Dose Management Condition: Thursday Dose/Route: 5 mg Instruction: 1 x 5 mg tablet Condition: Thursday Dose/Route: 5 mg Instruction: 1 x 5 mg tablet Condition: Thursday Dose/Route: 5 mg Instruction: 1 x 5 mg tablet Condition: Thursday Dose/Route: 5 mg Instruction: 1 x 5 mg tablet Condition: Dose/Route: 5 mg Instruction: 1 x 5 mg tablet Condition: Thursday Dose/Route: 5 mg Instruction: 1 x 5 mg tablet Condition: Thursday Dose/Route: 5 mg Instruction: 1 x 5 mg tablet Protocol Text: Adjustment Start Date: Thursday08/28/20 INR Value: 2.1 INR Date: 08/28/20 Recheck Date: 09/11/20 Additional Instructions: Continue with 5mg daily Coumadin with repeat INR to be drawn by VNA in 2 weeks 09/11/20. warfarin 2.5 mg tablet 2.5 mg PO 3XW 30 Days Qty: 30 3RF Protocol: Dose Management Condition: Thursday Dose/Route: 5 mg Instruction: 1 x 5 mg tablet Condition: Thursday Dose/Route: 5 mg Instruction: 1 x 5 mg tablet Condition: Thursday Dose/Route: 5 mg Instruction: 1 x 5 mg tablet Condition: Thursday Dose/Route: 5 mg Instruction: 1 x 5 mg tablet Condition: Dose/Route: 5 mg Instruction: 1 x 5 mg tablet Condition: Thursday Dose/Route: 5 mg Instruction: 1 x 5 mg tablet Condition: Thursday Dose/Route: 5 mg Instruction: 1 x 5 mg tablet Protocol Text: Adjustment Start Date: Thursday08/28/20 INR Value: 2.1 INR Date: 08/28/20 Recheck Date: 09/11/20 Additional Instructions: Continue with 5mg daily Coumadin with repeat INR to be drawn by VNA in 2 weeks 09/11/20. Rx Instructions: pt may take more than one tab a day, depending on INR atorvastatin 20 mg tablet 20 mg PO BEDTIME 90 Days Qty: 90 1RF ferrous sulfate 325 mg (65 mg iron) tablet 325 mg PO DAILY Qty: 90 0RF warfarin 2.5 mg tablet 7.5 mg PO MOWEFR@1800 ascorbic acid (vitamin C) 500 mg Tablet 500 mg PO DAILY warfarin 5 mg tablet 5 mg PO SUTUTHSA@1800 omeprazole 20 mg Tablet,Delayed Release (Dr/Ec) 20 mg PO DAILY@0630 PRN (Reason: Acid Reflux) Discontinued levofloxacin 250 mg tablet 250 mg PO DAILY 3 Days Qty: 3 0RF Rx Instructions: PATIENT HAS NOT PICKED UP FORM PHARMACY YET Discharge Orders: Discharge Order (Routine); Ordered 06/06/22 Ordered By: Vivek Moody Diet: Advance to usual diet Activity on Discharge: As tolerated Stand Alone Forms: Patient Portal Discharge page Activity Restrictions/Additional Instructions: Wound vac dressing change MWF, small granufoam sponge Care Plan Goals: Patient was admitted for sepsis due to UTI also concern of deep decubitus ulcer concern: Started on broad-spectrum antibiotics, blood culture negative, no fevers. Patient was seen by surgery and underwent again debridement of ulcer and wound VAC placement : Subsequently followed up by surgery and Infectious Disease: Recommended to change antibiotics ertapenem 3 weeks duration upon discharge, in addition is wound VAC dressing was changed yesterday as well as wound is granulating well-patient will be going home with wound VAC. please see wound VAC dressing change instruction as above. Consider checking CBC, CMP, ESR, CRP Q weekly while on antibiotics. INR therapeutic-monitor outpatient. Patient is to follow-up with PCP and surgery, wound care outpatiently. Health Concerns: As above. Plan of Treatment: As above. Assessment: As above.
--- NOTE | 2022-06-06 13:09 | P.F2F_ITS ---
Service Date Service Date: 06/06/22 Encounter Date of encounter: 06/06/22 Encounter: decubtii ,uti Reasons for Services Signs and symptoms assessed: Monitor for any fever or chills or any urinary complaints or any worsening of wound. Reason for group home: CV/CP assess and/or care, wound care, medication management, medication treatment and teach disease management MD Overseeing Care: Cortez Dalton Homebound: Leaving the home is medically contraindicated at this time without the asist of a device and/or another person due th the listed conditions above and below. Reason homebound: weakness related to hospital stay Homebound supporting statement: Patient multiple comorbidities including decubitus ulcer any UTI, generalized weak post hospitalization stay need help with going to appointments as well as blood draws and wound care outpatient. Certification: Based on the above findings, I certify that this patient is confined to the home and needs intermittent group home care, physical therapy and/or speech therapy, or continues to need occupational therapy. The patient is under my care, and I have initiated the establishment of the plan of care. The patient will be followed by a physician who will periodically review the plan of care. Time Spent With Patient Time: Total time managing care of this patient today ____ minutes.
--- NOTE | 2022-06-06 13:25 | PC.NURSE ---
Pt to be discharged 06/06. This nurse and MD Moody had a face to face w patient regarding completing his 3 weeks of antibiotics. His current debit card pays for 3 days of ABX. States when he gets home he has CC that will cover the rest. MD discussed concern if he was unable to pay out of pocket for the abx he must return to the ED. Discussed the risk, including sepsis, and pt understood.
--- NOTE | 2022-06-06 14:46 | MHC.CM.PN ---
PT MEDICALLY CLEARED FOR D/C HOME W/[facility] FOR ALF IV ABX AND WOUND VAC,WOUND VAC WILL BE DELIVERED TODAY BETWEEN 3-4PM AND ABX DELIVERY BETWEEN 7-8PM. [facility] FOR TRANSPORT AT 5PM.
[2022-06-06 15:47] VITALS: BP 117/57; PULSE 61; RESP 18; TEMP 36.9; O2SAT 96
[2022-06-06] MEDS: Warfarin Sodium 7.5 MG TABLET PO (18:17)
== END 2022-06-06 18:38 | disposition home health service (06) | DRG 853 ==
LOC: HO.ED 13:48 → HO.EDOVER 17:22 → HO.S3 05-29 16:04
PROVIDERS: Internal Medicine; Nurse Practitioner Family; Surgery; Admitting Provider Physician Assistant; Emergency Provider Emergency Medicine; PCP Nurse Practitioner Family; Visit Provider Internal Medicine
PROC: 0HBHXZZ Excision of Right Upper Leg Skin, External Approach (ICD-10-PCS; principal; 2022-06-03 12:30)
PROC: 2W0NX6Z Change Pressure Dressing on Right Upper Leg (ICD-10-PCS; CPT 15852; principal; 2022-06-05 12:00)
DX: A41.9 Sepsis, unspecified organism (principal); L89.314 Pressure ulcer of right buttock, stage 4; N39.0 Urinary tract infection, site not specified; G82.20 Paraplegia, unspecified; I96 Gangrene, not elsewhere classified; D68.61 Antiphospholipid syndrome; Z66 Do not resuscitate; Z96.0 Presence of urogenital implants; R31.0 Gross hematuria; E78.5 Hyperlipidemia, unspecified; D50.9 Iron deficiency anemia, unspecified; T14.8XXS Other injury of unspecified body region, sequela; W34.00XS Accidental discharge from unspecified firearms or gun, sequela; Z20.822 Contact with and (suspected) exposure to COVID-19; Z86.718 Personal history of other venous thrombosis and embolism; Z91.14 Patient's other noncompliance with medication regimen; Z99.3 Dependence on wheelchair; Z79.01 Long term (current) use of anticoagulants; Z79.899 Other long term (current) drug therapy
CPT/HCPCS: 36410; 36415; 72193; 80048; 80053; 80202; 81001; 82565; 83605; 85025; 85027; 85610; 85652; 87040; 87070; 87086; 87205; 87635; 88304; 99284; C1751; C1758; J0692; J0696; J1335; J1642; J2185; J2250; J2795; J3370; J3371; Q9967

== ENCOUNTER 2022-06-11 15:24 | Outpatient (REF) | payer MEDICARE, SELFPAY ==
[2022-06-11 16:11] LABS: Basophils Absolute Auto 0.1 X10*3/uL (0.0-0.2); Basophils Percent Auto 0.4 % (0-2); Eosinophils Absolute Auto 0.1 X10*3/uL (0.0-0.4); Eosinophils Percent Auto 0.4 % (0-4); Hematocrit 42.8 % (42.0-52.0); Hemoglobin 13.6 g/dl (14.0-18.0); Imm Gran Abs Auto 0.04 X10*3/uL (0.00-0.03); Imm Gran Pct Auto 0.2 % (0.0-0.4); Lymphocytes Absolute Auto 1.9 X10*3/uL (1.2-4.9); Lymphocytes Percent Auto 11.2 % (20-40); MANUAL DIFF FLAG SCAN; Mean Corpuscular HGB Conc 31.8 g/dl (31.0-36.0); Mean Corpuscular Hemoglobin 28.8 pg (27.0-33.0); Mean Corpuscular Volume 90.5 fL (80.0-98.0); Mean Platelet Volume 9.2 fL (9.4-12.4); Monocytes Absolute Auto 1.5 X10*3/uL (0.1-1.2); Monocytes Percent Auto 8.9 % (2-11); Neutrophils Absolute Auto 13.3 x10*3/uL (2.0-8.3); Neutrophils Percent Auto 78.9 % (45-73); Red Blood Count 4.73 X10*6/uL (4.60-5.80); Red Cell Distribution Width 16.1 % (11.0-16.0); SCAN SMEAR FLAG 1; White Blood Count 16.9 X10*3/uL (4.8-10.8)
[2022-06-11 16:45] LABS: Platelet Count 1011 X10*3/uL (160-400)
[2022-06-11 16:59] LABS: Alanine Aminotransferase 35 U/L (0-40); Albumin Level 3.5 g/dL (3.5-5.0); Alkaline Phosphatase 161 U/L (39-117); Anion Gap 13 (12-20); Aspartate Amino Transferase 25 U/L (5-37); Bilirubin Total 0.4 mg/dL (0.0-1.0); Blood Urea Nitrogen 10 mg/dL (9-16); C Reactive Protein 3.69 mg/dL (< or = 0.50); Calcium 8.8 mg/dL (8.4-10.2); Carbon Dioxide 29 mmol/L (22-29); Chloride 104 mmol/L (96-108); Estimated Glomerular Filt Rate > 60; Glucose Random 89 mg/dL (60-115); Potassium 4.8 mmol/L (3.3-5.1); Sodium 141 mmol/L (135-145)
[2022-06-11 17:05] LABS: SLIDE REVIEW VERIFIED
[2022-06-11 17:18] LABS: Erythrocyte Sedimentation Rate 39 MM/HR (0-15)
== END 2022-06-11 15:25 | disposition home or self-care (01) ==
LOC: HO.HMGCLDS 15:24
PROVIDERS: PCP Nurse Practitioner Family; Visit Provider Nurse Practitioner Family
DX: L89.94 Pressure ulcer of unspecified site, stage 4 (principal); A41.9 Sepsis, unspecified organism
CPT/HCPCS: 36415; 80053; 85025; 85652; 86140

== ENCOUNTER 2022-06-16 13:59 | Outpatient (REF) | payer MEDICARE, OTHER, SELFPAY ==
[2022-06-16 15:23] LABS: Basophils Absolute Auto 0.1 X10*3/uL (0.0-0.2); Basophils Percent Auto 0.5 % (0-2); Eosinophils Absolute Auto 0.2 X10*3/uL (0.0-0.4); Eosinophils Percent Auto 1.4 % (0-4); Hematocrit 40.4 % (42.0-52.0); Hemoglobin 13.2 g/dl (14.0-18.0); Imm Gran Abs Auto 0.06 X10*3/uL (0.00-0.03); Imm Gran Pct Auto 0.4 % (0.0-0.4); Lymphocytes Absolute Auto 1.9 X10*3/uL (1.2-4.9); Lymphocytes Percent Auto 13.9 % (20-40); MANUAL DIFF FLAG SCAN; Mean Corpuscular HGB Conc 32.7 g/dl (31.0-36.0); Mean Corpuscular Hemoglobin 29.5 pg (27.0-33.0); Mean Corpuscular Volume 90.2 fL (80.0-98.0); Mean Platelet Volume 9.4 fL (9.4-12.4); Monocytes Absolute Auto 1.5 X10*3/uL (0.1-1.2); Neutrophils Percent Auto 72.8 % (45-73); Platelet Count 881 X10*3/uL (160-400); Red Blood Count 4.48 X10*6/uL (4.60-5.80); Red Cell Distribution Width 15.6 % (11.0-16.0); SCAN SMEAR FLAG 1; White Blood Count 13.7 X10*3/uL (4.8-10.8)
[2022-06-16 16:02] LABS: SLIDE REVIEW VERIFIED
[2022-06-16 16:05] LABS: Alanine Aminotransferase 16 U/L (0-40); Albumin Level 3.3 g/dL (3.5-5.0); Alkaline Phosphatase 138 U/L (39-117); Anion Gap 13 (12-20); Aspartate Amino Transferase 17 U/L (5-37); Bilirubin Direct 0.2 mg/dL (0.0-0.5); Bilirubin Total 0.4 mg/dL (0.0-1.0); Blood Urea Nitrogen 10 mg/dL (9-16); C Reactive Protein 7.77 mg/dL (< or = 0.50); Calcium 8.9 mg/dL (8.4-10.2); Carbon Dioxide 27 mmol/L (22-29); Chloride 103 mmol/L (96-108); Estimated Glomerular Filt Rate > 60; Glucose Random 90 mg/dL (60-115); Potassium 4.2 mmol/L (3.3-5.1); Sodium 139 mmol/L (135-145); Total Protein 6.8 g/dL (6.5-8.0)
[2022-06-16 17:49] LABS: Erythrocyte Sedimentation Rate 62 MM/HR (0-15)
== END 2022-06-16 14:00 | disposition home or self-care (01) ==
LOC: HO.LAB 13:59
PROVIDERS: Absent Provider Nurse Practitioner Family; PCP Nurse Practitioner Family; Visit Provider Internal Medicine
DX: A41.9 Sepsis, unspecified organism (principal); D68.61 Antiphospholipid syndrome; D75.839 Thrombocytosis, unspecified; L89.94 Pressure ulcer of unspecified site, stage 4
CPT/HCPCS: 36415; 80053; 81219; 81270; 81279; 81339; 82248; 85025; 85652; 86140; 99212

== ENCOUNTER → 2022-06-20 10:34 | Outpatient (BNVA) | payer MEDICARE, OTHER, SELFPAY | PROVIDERS: PCP Nurse Practitioner Family; Visit Provider Surgery | DX: L89.214 Pressure ulcer of right hip, stage 4 (principal) | CPT/HCPCS: 11042; 99212 ==

== ENCOUNTER 2022-06-24 13:01 | Outpatient (RCR) | payer MEDICARE, OTHER, SELFPAY | END 2023-02-23 17:00 | disposition home or self-care (01) | LOC: HO.WCC 13:01 | PROVIDERS: PCP Nurse Practitioner Family; Visit Provider Physician Assistant | DX: L89.214 Pressure ulcer of right hip, stage 4 (principal); L89.314 Pressure ulcer of right buttock, stage 4; S71.102D Unspecified open wound, left thigh, subsequent encounter; M86.651 Other chronic osteomyelitis, right thigh; D64.9 Anemia, unspecified; L24.9 Irritant contact dermatitis, unspecified cause; E46 Unspecified protein-calorie malnutrition; G82.21 Paraplegia, complete; D68.61 Antiphospholipid syndrome; Z79.01 Long term (current) use of anticoagulants; Z79.899 Other long term (current) drug therapy | CPT/HCPCS: 11042; 11043; 11044; 11045; 11046; 11047; 17250; 87070; 87073; 87076; 87077; 87186; 87205; 88304; 88305; 88307; 88311; 97597; 97598; 97605; 99214 ==

== ENCOUNTER 2022-07-15 17:14 | Outpatient (REF) | payer MEDICARE, SELFPAY ==
[2022-07-15 17:19] LABS: MANUAL DIFF FLAG NO
[2022-07-15 17:29] LABS: Basophils Absolute Auto 0.1 X10*3/uL (0.0-0.2); Basophils Percent Auto 0.4 % (0-2); Eosinophils Absolute Auto 0.3 X10*3/uL (0.0-0.4); Eosinophils Percent Auto 2.6 % (0-4); Hematocrit 35.2 % (42.0-52.0); Hemoglobin 10.7 g/dl (14.0-18.0); Imm Gran Abs Auto 0.04 X10*3/uL (0.00-0.03); Imm Gran Pct Auto 0.3 % (0.0-0.4); Lymphocytes Absolute Auto 1.3 X10*3/uL (1.2-4.9); Lymphocytes Percent Auto 11.4 % (20-40); Mean Corpuscular HGB Conc 30.4 g/dl (31.0-36.0); Mean Corpuscular Hemoglobin 27.3 pg (27.0-33.0); Mean Corpuscular Volume 89.8 fL (80.0-98.0); Monocytes Absolute Auto 1.4 X10*3/uL (0.1-1.2); Monocytes Percent Auto 12.1 % (2-11); Neutrophils Absolute Auto 8.6 x10*3/uL (2.0-8.3); Neutrophils Percent Auto 73.2 % (45-73); Red Blood Count 3.92 X10*6/uL (4.60-5.80); Red Cell Distribution Width 16.6 % (11.0-16.0); White Blood Count 11.7 X10*3/uL (4.8-10.8)
[2022-07-15 17:55] LABS: Platelet Count 1013 X10*3/uL (160-400)
[2022-07-15 18:31] LABS: Alanine Aminotransferase 20 U/L (0-40); Albumin Level 2.9 g/dL (3.5-5.0); Alkaline Phosphatase 109 U/L (39-117); Anion Gap 13 (12-20); Aspartate Amino Transferase 18 U/L (5-37); Bilirubin Direct 0.1 mg/dL (0.0-0.5); Bilirubin Total 0.3 mg/dL (0.0-1.0); Blood Urea Nitrogen 10 mg/dL (9-16); C Reactive Protein 7.01 mg/dL (< or = 0.50); Calcium 8.2 mg/dL (8.4-10.2); Carbon Dioxide 26 mmol/L (22-29); Chloride 106 mmol/L (96-108); Estimated Glomerular Filt Rate > 60; Glucose Random 151 mg/dL (60-115); Potassium 5.2 mmol/L (3.3-5.1); Sodium 140 mmol/L (135-145); Total Protein 6.5 g/dL (6.5-8.0)
[2022-07-15 18:37] LABS: Erythrocyte Sedimentation Rate 87 MM/HR (0-15)
== END 2022-07-15 17:15 | disposition home or self-care (01) ==
LOC: HO.HVNA 17:14
PROVIDERS: Visit Provider Internal Medicine
DX: M86.9 Osteomyelitis, unspecified (principal)
CPT/HCPCS: 36415; 80053; 82248; 85025; 85652; 86140

== ENCOUNTER 2022-07-22 11:26 | Outpatient (REF) | payer MEDICARE, SELFPAY ==
[2022-07-22 14:01] LABS: MANUAL DIFF FLAG NO
[2022-07-22 14:08] LABS: Basophils Absolute Auto 0.1 X10*3/uL (0.0-0.2); Basophils Percent Auto 0.5 % (0-2); Eosinophils Absolute Auto 0.6 X10*3/uL (0.0-0.4); Eosinophils Percent Auto 5.6 % (0-4); Hematocrit 31.9 % (42.0-52.0); Hemoglobin 9.8 g/dl (14.0-18.0); Imm Gran Abs Auto 0.05 X10*3/uL (0.00-0.03); Imm Gran Pct Auto 0.4 % (0.0-0.4); Lymphocytes Absolute Auto 1.5 X10*3/uL (1.2-4.9); Lymphocytes Percent Auto 13.3 % (20-40); Mean Corpuscular HGB Conc 30.7 g/dl (31.0-36.0); Mean Corpuscular Hemoglobin 27.1 pg (27.0-33.0); Mean Corpuscular Volume 88.1 fL (80.0-98.0); Mean Platelet Volume 9.7 fL (9.4-12.4); Monocytes Percent Auto 8.4 % (2-11); Neutrophils Absolute Auto 8.2 x10*3/uL (2.0-8.3); Neutrophils Percent Auto 71.8 % (45-73); Platelet Count 837 X10*3/uL (160-400); Red Blood Count 3.62 X10*6/uL (4.60-5.80); Red Cell Distribution Width 16.8 % (11.0-16.0); White Blood Count 11.4 X10*3/uL (4.8-10.8)
[2022-07-22 14:24] LABS: Anion Gap 12 (12-20); Blood Urea Nitrogen 9 mg/dL (9-16); C Reactive Protein 10.56 mg/dL (< or = 0.50); Calcium 8.2 mg/dL (8.4-10.2); Carbon Dioxide 26 mmol/L (22-29); Chloride 107 mmol/L (96-108); Estimated Glomerular Filt Rate > 60; Glucose Random 180 mg/dL (60-115); Potassium 4.1 mmol/L (3.3-5.1); Sodium 141 mmol/L (135-145)
[2022-07-22 14:57] LABS: Erythrocyte Sedimentation Rate 90 MM/HR (0-15)
[2022-07-22 18:14] LABS: Appearance Urine Cloudy; Color Urine Yellow; Glucose Urine UA Negative (Negative); Leukocyte Esterase Urine Moderate (2+) (Negative); Nitrite Urine Negative (Negative); PH 5.5 (5.0-9.0); UMIC TRIGGER UA YES; Urine Blood Large (3+) (Negative); Urine Ketones Trace mg/dL (Negative); Urine Protein 100 (2+) mg/dL (Neg-Trace)
[2022-07-22 19:04] LABS: Bacteria Urine None Seen (None Seen); RBC Urine >20 /HPF (0-2); WBC Urine >50 /HPF (0-5)
== END 2022-07-22 11:27 | disposition home or self-care (01) ==
LOC: HO.HVNA 11:26
PROVIDERS: PCP Nurse Practitioner Family; Visit Provider Internal Medicine
DX: R30.0 Dysuria (principal); M86.9 Osteomyelitis, unspecified; R78.81 Bacteremia
CPT/HCPCS: 80048; 81001; 85025; 85652; 86140; 87086

== ENCOUNTER 2022-07-22 16:46 | Outpatient (REF) | payer MEDICARE, SELFPAY | END 2022-07-22 16:47 | disposition home or self-care (01) | LOC: HO.LAB 16:46 | PROVIDERS: Internal Medicine; Visit Provider Nurse Practitioner Family | DX: Z13.89 Encounter for screening for other disorder (principal) ==

== ENCOUNTER → 2022-07-24 08:27 | Outpatient (BNVA) | payer MEDICARE, OTHER, SELFPAY | PROVIDERS: PCP Nurse Practitioner Family; Visit Provider Urology | DX: N31.9 Neuromuscular dysfunction of bladder, unspecified (principal); N39.0 Urinary tract infection, site not specified; G82.20 Paraplegia, unspecified; Z79.02 Long term (current) use of antithrombotics/antiplatelets; Z96.0 Presence of urogenital implants; Z99.3 Dependence on wheelchair | CPT/HCPCS: 99202 ==

== ENCOUNTER 2022-07-28 16:40 | Outpatient (REF) | payer MEDICARE, SELFPAY ==
[2022-07-28 16:59] LABS: MANUAL DIFF FLAG NO
[2022-07-28 17:13] LABS: Basophils Absolute Auto 0.1 X10*3/uL (0.0-0.2); Basophils Percent Auto 0.7 % (0-2); Eosinophils Absolute Auto 0.7 X10*3/uL (0.0-0.4); Hematocrit 32.3 % (42.0-52.0); Imm Gran Abs Auto 0.03 X10*3/uL (0.00-0.03); Imm Gran Pct Auto 0.3 % (0.0-0.4); Lymphocytes Absolute Auto 1.4 X10*3/uL (1.2-4.9); Lymphocytes Percent Auto 15.8 % (20-40); Mean Corpuscular Hemoglobin 27.5 pg (27.0-33.0); Monocytes Absolute Auto 0.9 X10*3/uL (0.1-1.2); Monocytes Percent Auto 9.8 % (2-11); Neutrophils Absolute Auto 5.8 x10*3/uL (2.0-8.3); Neutrophils Percent Auto 65.4 % (45-73); Platelet Count 843 X10*3/uL (160-400); Red Blood Count 3.63 X10*6/uL (4.60-5.80); Red Cell Distribution Width 17.2 % (11.0-16.0); White Blood Count 8.8 X10*3/uL (4.8-10.8)
[2022-07-28 17:40] LABS: Alanine Aminotransferase 13 U/L (0-40); Albumin Level 2.7 g/dL (3.5-5.0); Alkaline Phosphatase 98 U/L (39-117); Anion Gap 13 (12-20); Aspartate Amino Transferase 17 U/L (5-37); Bilirubin Direct 0.1 mg/dL (0.0-0.5); Bilirubin Total 0.3 mg/dL (0.0-1.0); Blood Urea Nitrogen 6 mg/dL (9-16); C Reactive Protein 4.08 mg/dL (< or = 0.50); Calcium 8.3 mg/dL (8.4-10.2); Carbon Dioxide 25 mmol/L (22-29); Chloride 107 mmol/L (96-108); Estimated Glomerular Filt Rate > 60; Glucose Random 165 mg/dL (60-115); Potassium 4.3 mmol/L (3.3-5.1); Sodium 141 mmol/L (135-145); Total Protein 6.5 g/dL (6.5-8.0)
[2022-07-28 18:02] LABS: Erythrocyte Sedimentation Rate 80 MM/HR (0-15)
== END 2022-07-28 16:41 | disposition home or self-care (01) ==
LOC: HO.HVNA 16:40
PROVIDERS: Visit Provider Internal Medicine
DX: M86.9 Osteomyelitis, unspecified (principal)
CPT/HCPCS: 36415; 80048; 80076; 85025; 85652; 86140

== ENCOUNTER 2022-08-04 17:20 | Outpatient (REF) | payer MEDICARE, SELFPAY ==
[2022-08-04 17:25] LABS: MANUAL DIFF FLAG NO
[2022-08-04 18:13] LABS: Basophils Absolute Auto 0.1 X10*3/uL (0.0-0.2); Basophils Percent Auto 0.5 % (0-2); Eosinophils Absolute Auto 0.8 X10*3/uL (0.0-0.4); Eosinophils Percent Auto 5.7 % (0-4); Hematocrit 32.8 % (42.0-52.0); Hemoglobin 10.1 g/dl (14.0-18.0); Imm Gran Abs Auto 0.06 X10*3/uL (0.00-0.03); Imm Gran Pct Auto 0.4 % (0.0-0.4); Lymphocytes Absolute Auto 2.3 X10*3/uL (1.2-4.9); Lymphocytes Percent Auto 15.4 % (20-40); Mean Corpuscular HGB Conc 30.8 g/dl (31.0-36.0); Mean Corpuscular Hemoglobin 26.8 pg (27.0-33.0); Mean Platelet Volume 9.4 fL (9.4-12.4); Monocytes Absolute Auto 1.4 X10*3/uL (0.1-1.2); Monocytes Percent Auto 9.2 % (2-11); Neutrophils Absolute Auto 10.2 x10*3/uL (2.0-8.3); Neutrophils Percent Auto 68.8 % (45-73); Platelet Count 891 X10*3/uL (160-400); Red Blood Count 3.77 X10*6/uL (4.60-5.80); Red Cell Distribution Width 17.7 % (11.0-16.0); White Blood Count 14.9 X10*3/uL (4.8-10.8)
[2022-08-04 18:33] LABS: Alanine Aminotransferase 14 U/L (0-40); Albumin Level 2.9 g/dL (3.5-5.0); Alkaline Phosphatase 91 U/L (39-117); Anion Gap 11 (12-20); Aspartate Amino Transferase 21 U/L (5-37); Bilirubin Direct < 0.2 mg/dL (0.0-0.5); Bilirubin Total 0.2 mg/dL (0.0-1.0); Blood Urea Nitrogen 10 mg/dL (9-16); C Reactive Protein 4.17 mg/dL (< or = 0.50); Calcium 8.5 mg/dL (8.4-10.2); Carbon Dioxide 26 mmol/L (22-29); Chloride 108 mmol/L (96-108); Estimated Glomerular Filt Rate > 60; Glucose Random 63 mg/dL (60-115); Potassium 4.4 mmol/L (3.3-5.1); Sodium 141 mmol/L (135-145); Total Protein 6.8 g/dL (6.5-8.0)
[2022-08-04 18:44] LABS: Erythrocyte Sedimentation Rate 82 MM/HR (0-15)
== END 2022-08-04 17:21 | disposition home or self-care (01) ==
LOC: HO.HVNA 17:20
PROVIDERS: Visit Provider Internal Medicine
DX: A41.9 Sepsis, unspecified organism (principal)
CPT/HCPCS: 36415; 80048; 80076; 85025; 85652; 86140

== ENCOUNTER 2022-08-12 13:25 | Outpatient (REF) | payer MEDICARE, SELFPAY ==
[2022-08-12 13:32] LABS: MANUAL DIFF FLAG NO
[2022-08-12 14:05] LABS: Basophils Absolute Auto 0.1 X10*3/uL (0.0-0.2); Basophils Percent Auto 0.6 % (0-2); Eosinophils Absolute Auto 0.4 X10*3/uL (0.0-0.4); Eosinophils Percent Auto 3.8 % (0-4); Hematocrit 33.9 % (42.0-52.0); Hemoglobin 10.4 g/dl (14.0-18.0); Imm Gran Abs Auto 0.02 X10*3/uL (0.00-0.03); Imm Gran Pct Auto 0.2 % (0.0-0.4); Lymphocytes Absolute Auto 1.3 X10*3/uL (1.2-4.9); Lymphocytes Percent Auto 13.3 % (20-40); Mean Corpuscular HGB Conc 30.7 g/dl (31.0-36.0); Mean Corpuscular Hemoglobin 26.7 pg (27.0-33.0); Mean Corpuscular Volume 86.9 fL (80.0-98.0); Mean Platelet Volume 9.5 fL (9.4-12.4); Monocytes Absolute Auto 1.1 X10*3/uL (0.1-1.2); Monocytes Percent Auto 10.9 % (2-11); Neutrophils Absolute Auto 7.1 x10*3/uL (2.0-8.3); Neutrophils Percent Auto 71.2 % (45-73); Platelet Count 850 X10*3/uL (160-400); Red Cell Distribution Width 18.3 % (11.0-16.0); White Blood Count 9.9 X10*3/uL (4.8-10.8)
[2022-08-12 14:30] LABS: Alanine Aminotransferase 13 U/L (0-40); Albumin Level 2.9 g/dL (3.5-5.0); Alkaline Phosphatase 103 U/L (39-117); Anion Gap 15 (12-20); Aspartate Amino Transferase 21 U/L (5-37); Bilirubin Direct 0.1 mg/dL (0.0-0.5); Bilirubin Total 0.3 mg/dL (0.0-1.0); Blood Urea Nitrogen 9 mg/dL (9-16); Calcium 8.3 mg/dL (8.4-10.2); Carbon Dioxide 25 mmol/L (22-29); Chloride 107 mmol/L (96-108); Estimated Glomerular Filt Rate > 60; Glucose Random 91 mg/dL (60-115); Potassium 4.6 mmol/L (3.3-5.1); Sodium 142 mmol/L (135-145); Total Protein 6.7 g/dL (6.5-8.0)
[2022-08-12 14:46] LABS: Erythrocyte Sedimentation Rate 80 MM/HR (0-15)
== END 2022-08-12 13:26 | disposition home or self-care (01) ==
LOC: HO.HVNA 13:25
PROVIDERS: Visit Provider Internal Medicine
DX: M86.9 Osteomyelitis, unspecified (principal)
CPT/HCPCS: 36415; 80053; 82248; 85025; 85652; 86140

== ENCOUNTER 2022-08-19 18:08 | Outpatient (REF) | payer MEDICARE, SELFPAY ==
[2022-08-19 18:19] LABS: Basophils Absolute Auto 0.1 X10*3/uL (0.0-0.2); Basophils Percent Auto 0.5 % (0-2); Eosinophils Absolute Auto 0.6 X10*3/uL (0.0-0.4); Eosinophils Percent Auto 3.9 % (0-4); Hematocrit 33.6 % (42.0-52.0); Imm Gran Abs Auto 0.07 X10*3/uL (0.00-0.03); Imm Gran Pct Auto 0.4 % (0.0-0.4); Lymphocytes Absolute Auto 1.3 X10*3/uL (1.2-4.9); Lymphocytes Percent Auto 8.3 % (20-40); MANUAL DIFF FLAG SCAN; Mean Corpuscular HGB Conc 29.8 g/dl (31.0-36.0); Mean Corpuscular Hemoglobin 26.9 pg (27.0-33.0); Mean Corpuscular Volume 90.3 fL (80.0-98.0); Monocytes Absolute Auto 1.6 X10*3/uL (0.1-1.2); Monocytes Percent Auto 10.1 % (2-11); Neutrophils Absolute Auto 12.2 x10*3/uL (2.0-8.3); Neutrophils Percent Auto 76.8 % (45-73); Platelet Count 836 X10*3/uL (160-400); Red Blood Count 3.72 X10*6/uL (4.60-5.80); Red Cell Distribution Width 18.7 % (11.0-16.0); SCAN SMEAR FLAG 1; White Blood Count 15.9 X10*3/uL (4.8-10.8)
[2022-08-19 18:33] LABS: Alanine Aminotransferase 12 U/L (0-40); Albumin Level 2.9 g/dL (3.5-5.0); Alkaline Phosphatase 103 U/L (39-117); Anion Gap 17 (12-20); Aspartate Amino Transferase 18 U/L (5-37); Bilirubin Direct 0.1 mg/dL (0.0-0.5); Bilirubin Total 0.3 mg/dL (0.0-1.0); Blood Urea Nitrogen 9 mg/dL (9-16); Calcium 8.3 mg/dL (8.4-10.2); Carbon Dioxide 22 mmol/L (22-29); Chloride 106 mmol/L (96-108); Estimated Glomerular Filt Rate > 60; Glucose Random 92 mg/dL (60-115); Sodium 141 mmol/L (135-145); Total Protein 6.7 g/dL (6.5-8.0)
[2022-08-19 18:35] LABS: SLIDE REVIEW VERIFIED
[2022-08-19 19:07] LABS: Erythrocyte Sedimentation Rate 49 MM/HR (0-15)
== END 2022-08-19 18:09 | disposition home or self-care (01) ==
LOC: HO.HVNA 18:08
PROVIDERS: Visit Provider Internal Medicine
DX: M86.9 Osteomyelitis, unspecified (principal)
CPT/HCPCS: 36415; 80048; 80076; 85025; 85652; 86140

== ENCOUNTER 2022-08-22 14:21 | Outpatient (REF) | payer MEDICARE, SELFPAY ==
[2022-08-22 16:41] LABS: Appearance Urine Turbid; Color Urine Yellow; Glucose Urine UA Negative (Negative); Leukocyte Esterase Urine Large (3+) (Negative); Nitrite Urine Negative (Negative); PH 5.5 (5.0-9.0); Specific Gravity - Urine 1.015 (1.005-1.025); UMIC TRIGGER UACC YES; Urine Blood Large (3+) (Negative); Urine Ketones Negative (Negative); Urine Protein 100 (2+) mg/dL (Neg-Trace)
[2022-08-22 17:21] LABS: Bacteria Urine 1+ (None Seen); UACC Culture Trigger YES; WBC Urine 21-50 /HPF (0-5)
== END 2022-08-22 14:22 | disposition home or self-care (01) ==
LOC: HO.HMGCLNP 14:21
PROVIDERS: Internal Medicine; PCP Nurse Practitioner Family; Visit Provider Nurse Practitioner Family
DX: R31.9 Hematuria, unspecified (principal); R60.9 Edema, unspecified; E61.1 Iron deficiency; L89.94 Pressure ulcer of unspecified site, stage 4; A41.9 Sepsis, unspecified organism
CPT/HCPCS: 81001; 87086; 87088

== ENCOUNTER 2022-09-01 14:56 | Outpatient (REF) | payer MEDICARE, SELFPAY ==
[2022-09-01 17:29] LABS: Appearance Urine Turbid; Color Urine Yellow; Glucose Urine UA Negative (Negative); Nitrite Urine Positive (Negative); PH >= 9.0 (5.0-9.0); Specific Gravity - Urine <= 1.005 (1.005-1.025); UMIC TRIGGER UACC YES; Urine Blood Large (3+) (Negative); Urine Ketones Negative (Negative); Urine Protein 100 (2+) mg/dL (Neg-Trace)
[2022-09-01 17:30] LABS: Leukocyte Esterase Urine Large (3+) (Negative)
[2022-09-01 17:37] LABS: Bacteria Urine 4+ (None Seen); Hyaline Casts Urine 0-2 /LPF (0-2); Other Crystals Urine Present; Squamous Epithelial Cell Urine 0-2 /HPF (0-2); UACC Culture Trigger YES
== END 2022-09-01 14:57 | disposition home or self-care (01) ==
LOC: HO.HVNA 14:56
PROVIDERS: PCP Nurse Practitioner Family; Visit Provider Nurse Practitioner Family
DX: R10.9 Unspecified abdominal pain (principal); N39.9 Disorder of urinary system, unspecified
CPT/HCPCS: 81001; 87086; 87088; 87186

== ENCOUNTER 2022-09-23 13:31 | Outpatient (REF) | payer MEDICARE, SELFPAY ==
[2022-09-23 14:49] LABS: Appearance Urine Cloudy; Color Urine Yellow; Glucose Urine UA Negative (Negative); Leukocyte Esterase Urine Large (3+) (Negative); Nitrite Urine Positive (Negative); UMIC TRIGGER UACC YES; Urine Blood Large (3+) (Negative); Urine Ketones Negative (Negative); Urine Protein 100 (2+) mg/dL (Neg-Trace)
[2022-09-23 15:02] LABS: Bacteria Urine 4+ (None Seen); Hyaline Casts Urine >20 /LPF (0-2); RBC Urine >20 /HPF (0-2); UACC Culture Trigger YES; WBC Urine >50 /HPF (0-5)
== END 2022-09-23 13:32 | disposition home or self-care (01) ==
LOC: HO.HVNA 13:31
PROVIDERS: PCP Nurse Practitioner Family; Visit Provider Urology
DX: R10.9 Unspecified abdominal pain (principal); N39.0 Urinary tract infection, site not specified
CPT/HCPCS: 81001; 87086; 87088; 87186

== ENCOUNTER 2022-10-12 14:40 | Outpatient (REF) | payer MEDICARE, SELFPAY ==
[2022-10-12 15:11] LABS: Appearance Urine Turbid; Color Urine Yellow; Glucose Urine UA Negative (Negative); Leukocyte Esterase Urine Large (3+) (Negative); Nitrite Urine Negative (Negative); PH 5.5 (5.0-9.0); Specific Gravity - Urine 1.015 (1.005-1.025); UMIC TRIGGER UACC YES; Urine Blood Large (3+) (Negative); Urine Ketones Negative (Negative); Urine Protein 100 (2+) mg/dL (Neg-Trace)
[2022-10-12 15:34] LABS: Bacteria Urine 4+ (None Seen); RBC Urine >20 /HPF (0-2); UACC Culture Trigger YES; WBC Urine >50 /HPF (0-5)
== END 2022-10-12 14:41 | disposition home or self-care (01) ==
LOC: HO.LNP 14:40
PROVIDERS: Visit Provider Nurse Practitioner Family
DX: R39.198 Other difficulties with micturition (principal)
CPT/HCPCS: 81001; 81003; 87086; 87088; 87186

== ENCOUNTER 2022-11-02 18:53 | Emergency (ER) | payer MEDICARE, SELFPAY ==
[2022-11-02 19:38] VITALS: BP 136/86; BP 140/51; PULSE 72; PULSE 92; RESP 16; TEMP 36.6; O2SAT 100; O2SAT 97; BMI 19.9
--- NOTE | 2022-11-02 19:44 | PC.NURSE ---
During triage patient was asked if he wanted to hurt anyone. Patient stated yes, do you want the list? When patient asked for further information he stated that's not something you tell other people. Patient would not answer any more questions regarding the subject.
--- NOTE | 2022-11-02 19:45 | PC.NURSE ---
Attempted to place coude catheter on patient. This nurse was unsuccessful in placing catheter, provider aware.
--- OUTSIDE RECORDS SUMMARY | 2022-11-02 19:55 | XMS_ITS | Continuity of Care Document ---
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 Position: [facility] RN Member Role: Primary Care Nurse Name: Lashay Ruby RN Position: [facility] RN Member Role: Primary Care Nurse Name: Tiffanie Díaz NP Position: [facility] PCO Associate Professional Member Role: Primary Care Nurse Address: Address: [address] [place] [phone]- Name: Pratik Williamson RN Position: [facility] RN Member Role: Primary Care Nurse Name: Elmer Woods RN Position: [facility] RN Member Role: Primary Care Nurse Name: Cristina Pineda RN Position: [facility] RN Member Role: Primary Care Nurse Name: Bobbi Tai RN Position: [facility] Food And Drug Inspector Member Role: Primary Care Nurse Name: Brii Hall RN Position: [facility] Outreach Member Role: Primary Care Nurse Name: Abdiaziz Paige RN Position: [facility] RN Member Role: Primary Care Nurse Name: Georgia Jenkins RN Position: [facility] RN Member Role: Primary Care Nurse Name: Socorro Acosta RN Position: [facility] RN Member Role: Primary Care Nurse Name: Thea Brown RN Position: [facility] SN RN Member Role: Primary Care Nurse Name: Louie Lehman MD Position: [facility] Renal MD Member Role: Lifetime Consulting Physician Address: Address: [address] [place] [address] [facility] [place], [place] [address] Name: Kuldip CERRATO, Aissatou Samano Position: [facility] RN Member Role: Primary Care Nurse Name: Renetta Bo RN Position: [facility] RN Member Role: Primary Care Nurse Name: Gladis Beltran RN Position: [facility] Hospital Food And Drug Inspector Member Role: Primary Care Nurse Name: Fartun Lundberg RN, I Position: [facility] RN Member Role: Primary Care Nurse Name: Gabrielle RIVERO Attending Position: [facility] ED Medicine MD Name: Cristina Espitia RN Position: [facility] ED RN W/OE and Tasks Member Role: Patient Care Provider Name: Beth Medina Position: [facility] ED TA [facility] Name: Thea Rodriguez Position: [facility] ED OA Charge Member Role: ED Associate Care Team Related Persons Name: CLIFTON BERKOWITZ Address: [place] [address] Name: POORNIMA CAPUTO Address: [place] [address]
--- OUTSIDE RECORDS SUMMARY | 2022-11-02 19:55 | XMS_ITS | Continuity of Care Document ---
Author Name Unknown Organization [facility] Address [address] [place] [address]- Care Team Providers Care Registered Private Duty Nurse Name Role Phone Krystle MAYS, Cortez Eldridge Primary Care Physician Encounter [facility] Date(s): 08/28/22 - 09/27/22 [facility] [address] [place] [id number] Allergies, Adverse Reactions, Alerts No Known Allergies [...] opioid drug. Start Date: 07/09/22 Status: Ordered warfarin 5 mg oral tablet [...] Pressure ulcer Confirmed Active Thrombocytosis Confirmed Active Social History Social History Type Response Smoking Status Never smoker entered on: 04/15/16 Sex Patient Care team information Care Team Personnel Name: Chani Tatum Position: [facility] Onco RN Member Role: Primary Care Nurse Name: Georgina Juarez RN Position: [facility] RN Member Role: Primary Care Nurse Name: Miguel Coates RN Position: [facility] RN Member Role: Primary Care Nurse Name: Vidya Stanford RN Position: [facility] RN Member Role: Primary Care Nurse Name: Arlen Crespo RN Position: [facility] RN Member Role: Primary Care Nurse Name: Ayala Montejo RN Position: [facility] RN Member Role: Primary Care Nurse Name: Cortez Dalton NP Position: Reference Physician Member Role: PCP Address: Address: [address] [place] [address]- Name: Sandra Morejon RN Position: [facility] RN Member Role: Primary Care Nurse Name: Lary Lynn RN Position: [facility] RN Supv Member Role: Primary Care Nurse Name: Tiffanie Díaz NP Position: [facility] PCO Associate Professional Member Role: Primary Care Nurse Address: Address: [address] [place] [phone]- [place] Name: Cristina Pineda RN Position: [facility] RN Member Role: Primary Care Nurse Name: Bobbi Tai RN Position: [facility] Hospital [employer] Attendant Member Role: Primary Care Nurse Name: Brii Hall RN Position: [facility] Outreach Member Role: Primary Care Nurse Name: Abdiaziz Paige RN Position: [facility] RN Member Role: Primary Care Nurse Name: Thea Brown RN Position: [facility] RN Member Role: Primary Care Nurse Name: Aissatou Christiansen RN Position: [facility] RN Member Role: Primary Care Nurse Name: Gladis Beltran RN Position: [facility] [employer] Attendant Member Role: Primary Care Nurse Name: Fartun Lundberg RN, I Position: [facility] RN Member Role: Primary Care Nurse Care Team Related Persons Name: CLIFTON BERKOWITZ Address: [place] [address] Name: POORNIMA CAPUTO Address: [address] [address]
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
[2022-11-02] MEDS: Lidocaine HCl 2 % Urojet 10 ML JEL.PF.APP TOPICAL (22:19)
[2022-11-02 23:15] LABS: Appearance Urine Turbid; Color Urine Yellow; Glucose Urine UA Negative (Negative); Leukocyte Esterase Urine Moderate (2+) (Negative); Nitrite Urine Negative (Negative); PH 5.5 (5.0-9.0); Specific Gravity - Urine 1.015 (1.005-1.025); UMIC TRIGGER UACC YES; Urine Blood Large (3+) (Negative); Urine Ketones Negative (Negative); Urine Protein 100 (2+) mg/dL (Neg-Trace)
[2022-11-02 23:30] VITALS: BP 132/72; PULSE 72; RESP 18; O2SAT 98
[2022-11-02 23:35] LABS: Bacteria Urine None Seen (None Seen); RBC Urine >20 /HPF (0-2); Squamous Epithelial Cell Urine 0-2 /HPF (0-2); UACC Culture Trigger YES; WBC Urine 21-50 /HPF (0-5)
--- NOTE | 2022-11-03 02:14 | PC.NURSE ---
EMS departure at 0157
== END 2022-11-03 01:55 | disposition home or self-care (01) ==
PROVIDERS: Emergency Provider Internal Medicine; PCP Nurse Practitioner Family
DX: T83.9XXA Unspecified complication of genitourinary prosthetic device, implant and graft, initial encounter (principal); Y73.8 Miscellaneous gastroenterology and urology devices associated with adverse incidents, not elsewhere classified; Y92.9 Unspecified place or not applicable; N39.0 Urinary tract infection, site not specified; Z79.899 Other long term (current) drug therapy
CPT/HCPCS: 51798; 81001; 81003; 87086; 99284

== ENCOUNTER 2022-11-10 15:01 | Outpatient (REF) | payer MEDICARE, SELFPAY ==
[2022-11-10 15:25] LABS: MANUAL DIFF FLAG NO
[2022-11-10 15:46] LABS: Basophils Absolute Auto 0.1 X10*3/uL (0.0-0.2); Basophils Percent Auto 0.6 % (0-2); Eosinophils Absolute Auto 0.8 X10*3/uL (0.0-0.4); Eosinophils Percent Auto 9.3 % (0-4); Imm Gran Abs Auto 0.03 X10*3/uL (0.00-0.03); Imm Gran Pct Auto 0.3 % (0.0-0.4); Lymphocytes Absolute Auto 0.9 X10*3/uL (1.2-4.9); Lymphocytes Percent Auto 10.5 % (20-40); Mean Corpuscular HGB Conc 30.7 g/dl (31.0-36.0); Mean Corpuscular Hemoglobin 25.5 pg (27.0-33.0); Mean Corpuscular Volume 83.3 fL (80.0-98.0); Mean Platelet Volume 9.6 fL (9.4-12.4); Monocytes Absolute Auto 0.9 X10*3/uL (0.1-1.2); Monocytes Percent Auto 9.8 % (2-11); Neutrophils Absolute Auto 6.1 x10*3/uL (2.0-8.3); Neutrophils Percent Auto 69.5 % (45-73); Platelet Count 664 X10*3/uL (160-400); Red Blood Count 2.39 X10*6/uL (4.60-5.80); Red Cell Distribution Width 20.4 % (11.0-16.0); White Blood Count 8.7 X10*3/uL (4.8-10.8)
[2022-11-10 16:27] LABS: Hematocrit 19.9 % (42.0-52.0); Hemoglobin 6.1 g/dl (14.0-18.0)
[2022-11-10 17:19] LABS: Erythrocyte Sedimentation Rate 63 MM/HR (0-15)
[2022-11-10 19:23] LABS: Vancomycin Trough 12.7 mcg/mL (10.0-20.0)
[2022-11-10 19:56] LABS: Alanine Aminotransferase 12 U/L (0-40); Albumin Level 1.6 g/dL (3.5-5.0); Alkaline Phosphatase 61 U/L (39-117); Anion Gap 11 (12-20); Aspartate Amino Transferase 16 U/L (5-37); Bilirubin Direct < 0.2 mg/dL (0.0-0.5); Bilirubin Total 0.1 mg/dL (0.0-1.0); Blood Urea Nitrogen 21 mg/dL (9-16); C Reactive Protein 5.49 mg/dL (< or = 0.50); Calcium 5.7 mg/dL (8.4-10.2); Carbon Dioxide 14 mmol/L (22-29); Chloride 121 mmol/L (96-108); Estimated Glomerular Filt Rate > 60; Glucose Random 53 mg/dL (60-115); Potassium 3.6 mmol/L (3.3-5.1); Sodium 142 mmol/L (135-145); Total Protein 4.7 g/dL (6.5-8.0)
== END 2022-11-10 15:02 | disposition home or self-care (01) ==
LOC: HO.HVNA 15:01
PROVIDERS: Visit Provider Internal Medicine Infectious Disease
DX: Z79.899 Other long term (current) drug therapy (principal)
CPT/HCPCS: 36415; 80048; 80076; 80202; 85025; 85652; 86140

== ENCOUNTER 2022-11-17 09:29 | Outpatient (AMB) | payer MEDICARE, SELFPAY ==
[2022-11-17 09:36] VITALS: BP 120/64; PULSE 78; O2SAT 99
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
== END 2022-11-17 10:26 | disposition home or self-care (01) ==
PROVIDERS: Visit Provider Nurse Practitioner Family
DX: A41.9 Sepsis, unspecified organism (principal); D64.9 Anemia, unspecified; E61.1 Iron deficiency; L89.94 Pressure ulcer of unspecified site, stage 4
CPT/HCPCS: 99213

== ENCOUNTER 2022-11-18 14:32 | Outpatient (AMB) | payer MEDICARE, SELFPAY ==
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
--- OUTSIDE RECORDS SUMMARY | 2022-11-18 14:34 | XMS_ITS | Continuity of Care Document ---
Author Name Unknown Organization [facility] Address [address] [place] [address]- Care Team Providers Care Winterizer Name Role Phone Krystle MAYS, Cortez Eldridge Primary Care Physician [phone] [place] [facility] [place]14[place]22 - 11/13/22 [facility] [address] [place] [id number] Allergies, Adverse Reactions, Alerts Substance Reaction Severity Status Zosyn Rash body wide rash Active Immunizations Given and Recorded Vaccine Date Status Refusal Reason pneumococcal 13-valent vaccine 02/23/16 Given meningococcal group B vaccine 02/22/16 Given Meningococcal Polysaccharide Vaccine 02/22/16 Give n haemophilus b conjugate (PRP-T) vaccine 02/22/16 G iven tetanus/diphtheria/pertussis, acel(Tdap) 1 02/02/16 Given 1Early/Late Reason: Med Not Available Medications atorvastatin [...] opioid drug. Start Date: 07/09/22 Status: Ordered metroNIDAZOLE 500 mg oral tablet 1 tablet = 500 mg, By Mouth, 3 times a day, for 18 days, # 54 tablet, 0 Refills, Acute 11/29/22 11:42:00 EDT, 11/11/22 11:42:00 EDT, [facility]/pharmacy #[id number], Partial fill upon patient request if the prescription is for a schedule II opioid drug., 175, cm,... Start Date: 11/11/22 Stop Date: 11/29/22 Status: Ordered Piperacillin-Tazobactam 3.375 Gm, IVPB, Every [...] Care Team Personnel Name: Chani Tatum Position: [facility] Onco RN Member Role: Primary Care Nurse Name: Cleo Smith RN Position: S RN Member Role: Primary Care Nurse Name: Rj Decker MD Position: [facility] Renal MD Member Role: Lifetime Consulting Physician Address: Address: [address] [place] [address], [address] Name: Arlen Darnell RN Position: [facility] RN Supv Member Role: Primary Care Nurse Name: Courtney Lucia RN Position: S RN Member Role: Primary Care Nurse Name: Nica Godfrey RN Position: [facility] RN Member Role: Primary Care Nurse Name: Georgina Juarez RN Position: [facility] RN Member Role: Primary Care Nurse Name: Miguel Coates RN Position: [facility] RN Member Role: Primary Care Nurse Name: Vidya Stanford RN Position: [facility] RN Member Role: Primary Care Nurse Name: Arlen Crespo RN Position: [facility] RN Member Role: Primary Care Nurse Name: Nadira Brink RN Position: [facility] RN Member Role: Primary Care Nurse Name: Ayala Montejo RN Position: [facility] RN Member Role: Primary Care Nurse Name: Cortez Dalton NP Position: Reference Physician Member Role: PCP Address: Address: [address] [place] [address]- Name: Lois Chong RN Position: [facility] RN Member Role: Primary Care Nurse Name: Sandra Morejon RN Position: [facility] RN Member Role: Primary Care Nurse Name: Janneth Luciano RN Position: [facility] RN Member Role: Primary Care Nurse Name: Ivory Mitchell RN Position: [facility] RN Member Role: Primary Care Nurse Name: Lary Lynn RN Position: [facility] RN Supv Member Role: Primary Care Nurse Name: Debbie Renteria RN Position: [facility] RN Member Role: Primary Care Nurse Name: Lashay Ruby RN Position: [facility] RN Member Role: Primary Care Nurse Name: Tiffanie Díaz NP Position: [facility] PCO Associate Professional Member Role: Primary Care Nurse Address: Address: [address] [place] [address]- Name: Pratik Williamson RN Position: [facility] RN Member Role: Primary Care Nurse Name: Elmer Woods RN Position: [facility] RN Member Role: Primary Care Nurse Name: Cristina Pineda RN Position: [facility] RN Member Role: Primary Care Nurse Name: Bobbi Tai RN Position: [facility] Hospital Treatment Coordinator Member Role: Primary Care Nurse Name: Brii Hall RN Position: [facility] Outreach Member Role: Primary Care Nurse Name: Abdiaziz Paige RN Position: [facility] RN Member Role: Primary Care Nurse Name: Georgia Jenkins RN Position: [facility] RN Member Role: Primary Care Nurse Name: Socorro Acosta RN Position: [facility] RN Member Role: Primary Care Nurse Name: Thea Brown RN Position: [facility] SN RN Member Role: Primary Care Nurse Name: oLuie Lehman MD Position: [facility] Renal MD Member Role: Lifetime Consulting Physician Address: Address: [address] [place] [address] [facility] [address] Name: Aissatou Christiansen RN Position: [facility] RN Member Role: Primary Care Nurse Name: Renetta Bo RN Position: [facility] RN Member Role: Primary Care Nurse Name: Gladis Beltran RN Position: [facility] Treatment Coordinator Member Role: Primary Care Nurse Name: Fartun Lundberg RN, I Position: [facility] RN Member Role: Primary Care Nurse Care Team Related Persons Name: CLIFTON BERKOWITZ Address: [place] [address] Name: POORNIMA CAPUTO Address: [place] [address]
--- OUTSIDE RECORDS SUMMARY | 2022-11-18 14:34 | XMS_ITS | Continuity of Care Document ---
Author Name Unknown Organization [facility] Address [address] [place] [address]- Care Team Providers Care Creative Consultant Name Role Phone Krystle MAYS, Cortez Eldridge Primary Care Physician [phone] Encounter [facility] [facility] [place] [id number] Date(s): 10/14/22 - 11/13/22 [facility] [address] [place] [address]- Attending Physician: Juan Jose Oreilly Admitting Physician: Juan Jose Oreilly Referring Physician: AdmtrJuan Jose Allergies, Adverse Reactions, Alerts Substance Reaction Severity [...] Acute 11/29/22 11:42:00 EDT, 11/11/22 11:42:00 EDT, [facility]/pharmacy #[id number], Partial fill upon patient request if the [...] Status Never smoker entered on: 04/15/16 Sex Laboratory * Event Display: Non BH Lab Results Authored Date: * Event Display: Non BH Lab Results Authored Date: * Event Display: Non BH Lab Results Authored Date: * Event Display: Non BH Lab Results Authored Date: Patient Care team information Care Team Personnel Name: Chani Tatum Position: [facility] RN Member Role: Primary Care Nurse Name: Cleo Smith RN Position: [facility] RN Member Role: Primary Care Nurse Name: Jeronimo LOERA, Rj Tellez Position: [facility] Renal MD Member Role: Lifetime Consulting Physician Address: Address: [address] [place] [address], [address] [place] [address]- [place] Name: Arlen Darnell RN Position: [facility] RN Supv Member Role: Primary Care Nurse Name: Courtney Lucia RN Position: [facility] RN Member Role: Primary Care Nurse Name: Nica Godfrey RN Position: [facility] RN Member Role: Primary Care Nurse Name: Georgina Juarez RN Position: [facility] RN Member Role: Primary Care Nurse Name: Miguel Coates RN Position: [facility] RN Member Role: Primary Care Nurse Name: Vidya Stanford RN Position: [facility] RN Member Role: Primary Care Nurse Name: Arlen Crespo RN Position: [facility] RN Member Role: Primary Care Nurse Name: Nadira Brink RN Position: [facility] RN Member Role: Primary Care Nurse Name: Ayala Montejo RN Position: [facility] RN Member Role: Primary Care Nurse Name: Cortez Dalton NP Position: Reference Physician Member Role: PCP Address: Address: [address] [place] [address]- [place] Name: Lois Chong RN Position: [facility] RN Member Role: Primary Care Nurse Name: Sandra Morejon RN Position: [facility] RN Member Role: Primary Care Nurse Name: Janneth Luciano RN Position: [facility] RN Member Role: Primary Care Nurse Name: Ivory Mitchell RN Position: [facility] RN Member Role: Primary Care Nurse Name: Lary Lynn RN Position: [facility] RN Supv Member Role: Primary Care Nurse Name: Debbie Renteria RN Position: [facility] RN Member Role: Primary Care Nurse Name: Lashay Ruby RN Position: [facility] RN Member Role: Primary Care Nurse Name: Tiffanie Díaz NP Position: [facility] PCO Associate Professional Member Role: Primary Care Nurse Address: Address: [address] [place] [address]- [place] Name: Pratik Williamson RN Position: [facility] RN Member Role: Primary Care Nurse Name: Elmer Woods RN Position: [facility] RN Member Role: Primary Care Nurse Name: Cristina Pineda RN Position: [facility] RN Member Role: Primary Care Nurse Name: Bobbi Tai RN Position: [facility] Thread Winder Member Role: Primary Care Nurse Name: Brii Hall RN Position: [facility] Outreach Member Role: Primary Care Nurse Name: Abdiaziz Paige RN Position: [facility] RN Member Role: Primary Care Nurse Name: Georgia Jenkins RN Position: [facility] RN Member Role: Primary Care Nurse Name: Socorro Acosta RN Position: [facility] RN Member Role: Primary Care Nurse Name: Thea Brown RN Position: [facility] SN RN Member Role: Primary Care Nurse Name: Louie Lehman MD Position: [facility] Renal MD Member Role: Lifetime Consulting Physician Address: Address: [address] [place] [address] [facility] [address] Name: Aissatou Christiansen RN Position: [facility] RN Member Role: Primary Care Nurse Name: Renetta Bo RN Position: [facility] RN Member Role: Primary Care Nurse Name: Gladis Beltran RN Position: [facility] Thread Winder Member Role: Primary Care Nurse Name: Fartun Lundberg RN, I Position: [facility] RN Member Role: Primary Care Nurse Care Team Related Persons Name: CLIFTON BERKOWITZ Address: [place] [address] Name: POORNIMA CAPUTO Address: [place] [address]
== END 2022-11-18 16:37 | disposition home or self-care (01) ==
LOC: HO.HUSH 14:33
PROVIDERS: PCP Nurse Practitioner Family; Visit Provider Urology
DX: N31.9 Neuromuscular dysfunction of bladder, unspecified (principal); N39.0 Urinary tract infection, site not specified
CPT/HCPCS: 99213

== ENCOUNTER → 2022-11-18 14:32 | Outpatient (BNVA) | payer MEDICARE, SELFPAY | PROVIDERS: PCP Nurse Practitioner Family; Visit Provider Urology ==

== ENCOUNTER 2023-01-06 12:20 | Outpatient (REF) | payer MEDICARE, SELFPAY | END 2023-01-06 12:21 | disposition home or self-care (01) | LOC: HO.HVNA 12:20 | PROVIDERS: PCP Nurse Practitioner Family; Visit Provider Nurse Practitioner Family | DX: Z13.89 Encounter for screening for other disorder (principal) | CPT/HCPCS: 36415; 85610 ==

== ENCOUNTER 2023-01-29 10:27 | Outpatient (AMB) | payer MEDICARE, SELFPAY ==
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
[2023-01-29 10:35] VITALS: BP 92/52; PULSE 101
== END 2023-01-29 11:05 | disposition home or self-care (01) ==
PROVIDERS: PCP Nurse Practitioner Family; Visit Provider Surgery
DX: L89.94 Pressure ulcer of unspecified site, stage 4 (principal)
CPT/HCPCS: 99214

== ENCOUNTER → 2023-01-29 10:27 | Outpatient (BNVA) | payer MEDICARE, SELFPAY | PROVIDERS: PCP Nurse Practitioner Family; Visit Provider Surgery | DX: L89.44 Pressure ulcer of contiguous site of back, buttock and hip, stage 4 (principal); G82.20 Paraplegia, unspecified | CPT/HCPCS: 99212 ==